=== PATIENT | male | born 1970 | race Two or more races ===

== ENCOUNTER 2020-10-04 17:01 | Outpatient (REF) | payer OTHER, SELFPAY ==
[2020-10-04 17:52] LABS: Hematocrit 46.8 % (42-52); Hemoglobin 16.2 g/dl (14.0-18.0); Mean Corpuscular HGB Conc 34.6 g/dl (31.0-36.0); Mean Corpuscular Hemoglobin 31.9 pg (27.0-33.0); Mean Corpuscular Volume 92.1 fL (80-98); Mean Platelet Volume 10.7 fL (9.4-12.4); Platelet Count 404 X10*3/uL (160-400); Red Blood Count 5.08 X10*6/uL (4.60-5.80); Red Cell Distribution Width 12.4 % (11.0-16.0); White Blood Count 12.6 X10*3/uL (4.8-10.8)
[2020-10-04 18:21] LABS: Alanine Aminotransferase 24 U/L (0-40); Albumin Level 4.9 g/dL (3.5-5.0); Alkaline Phosphatase 71 U/L (39-117); Anion Gap 14 (12-20); Aspartate Amino Transferase 24 U/L (5-37); Bilirubin Direct 0.3 mg/dL (0.0-0.5); Bilirubin Total 0.9 mg/dL (0.0-1.0); Blood Urea Nitrogen 21 mg/dL (9-16); Carbon Dioxide 29 mmol/L (22-29); Chloride 97 mmol/L (96-108); Cholesterol 200 mg/dL; Estimated Glomerular Filt Rate > 60; Glucose Random 100 mg/dL (60-115); HDL Cholesterol 50 mg/dL; LDL Cholesterol Calculated 115 mg/dl; Potassium 3.9 mmol/L (3.3-5.1); Sodium 136 mmol/L (135-145); Total Protein 7.9 g/dL (6.5-8.0); Triglycerides 179 mg/dL
[2020-10-04 18:45] LABS: Erythrocyte Sedimentation Rate 1 MM/HR (0-15)
== END 2020-10-04 17:02 | disposition home or self-care (01) ==
LOC: HO.LAB 17:01
PROVIDERS: PCP Internal Medicine; Visit Provider Internal Medicine
DX: I10 Essential (primary) hypertension (principal)
CPT/HCPCS: 36415; 80048; 80061; 80076; 85027; 85652

== ENCOUNTER 2022-03-15 08:59 | Outpatient (REF) | payer OTHER, SELFPAY ==
[2022-03-15 10:47] LABS: Hematocrit 47.8 % (42.0-52.0); Hemoglobin 16.2 g/dl (14.0-18.0); Mean Corpuscular HGB Conc 33.9 g/dl (31.0-36.0); Mean Corpuscular Volume 94.5 fL (80.0-98.0); Mean Platelet Volume 10.7 fL (9.4-12.4); Platelet Count 343 X10*3/uL (160-400); Red Blood Count 5.06 X10*6/uL (4.60-5.80); Red Cell Distribution Width 12.9 % (11.0-16.0); White Blood Count 7.7 X10*3/uL (4.8-10.8)
[2022-03-15 11:17] LABS: Appearance Urine CLEAR; Color Urine STRAW; Glucose Urine UA NEG (NEG); Leukocyte Esterase Urine NEG (NEG); Nitrite Urine NEG (NEG); Specific Gravity - Urine 1.015 (1.005-1.025); Urine Blood NEG (NEG); Urine Ketones NEG (NEG); Urine Protein NEG (NEG-TRACE)
[2022-03-15 11:23] LABS: Alanine Aminotransferase 54 U/L (0-40); Albumin Level 4.5 g/dL (3.5-5.0); Alkaline Phosphatase 65 U/L (39-117); Anion Gap 16 (12-20); Aspartate Amino Transferase 40 U/L (5-37); Bilirubin Direct 0.3 mg/dL (0.0-0.5); Bilirubin Total 0.9 mg/dL (0.0-1.0); Blood Urea Nitrogen 14 mg/dL (9-16); Calcium 9.7 mg/dL (8.4-10.2); Carbon Dioxide 25 mmol/L (22-29); Chloride 101 mmol/L (96-108); Cholesterol 210 mg/dL; Estimated Glomerular Filt Rate > 60; Glucose Random 92 mg/dL (60-115); HDL Cholesterol 47 mg/dL; LDL Cholesterol Calculated 131 mg/dl; Potassium 4.4 mmol/L (3.3-5.1); Sodium 138 mmol/L (135-145); Total Protein 7.6 g/dL (6.5-8.0); Triglycerides 162 mg/dL
[2022-03-15 11:32] LABS: Thyroid Stimulating Hormone 2.08 uIU/mL (0.32-4.0)
== END 2022-03-15 09:00 | disposition home or self-care (01) ==
LOC: HO.LAB 08:59
PROVIDERS: PCP Internal Medicine; Visit Provider Internal Medicine
DX: I10 Essential (primary) hypertension (principal)
CPT/HCPCS: 36415; 80048; 80061; 80076; 81003; 84443; 85027

== ENCOUNTER → 2022-11-06 10:09 | Outpatient (BNVA) | payer OTHER, SELFPAY | PROVIDERS: PCP Internal Medicine; Visit Provider Urology | DX: Z13.89 Encounter for screening for other disorder (principal) ==

== ENCOUNTER 2022-12-19 05:54 | Day surgery (SDC) | payer OTHER, SELFPAY ==
[2022-12-15 08:00] VITALS: BMI 31.7
--- NOTE | 2022-12-18 10:00 | HO.ANESPROP2 ---
Documented by User: Angela Pisano NP 12/18/22 10:00 HPI - Anesthesia Eval Consult details Narrative: 52yo M for Circumcision PMFSH Active Problems Active Problems: All Active Problems (Updated 11/06/22 @ 10:37 by Allen Arias) Phimosis (Acute) Balanitis (Acute) Foreskin does not retract (Acute) Obesity (BMI 30.0-34.9) (Acute) Rash (Acute) Essential (primary) hypertension (Acute) Past Medical History Medical History Essential (primary) hypertension Family History Family History Father No problems noted. Mother No problems noted. Daughter No problems noted. Daughter No problems noted. Surgical History Surgical History (Updated 12/19/22 @ 08:21 by Cayla Gould MD) H/O skin graft Social History Social History Housing: House Alcohol intake: never Patient Tobacco Use Status: Never used Tobacco e-Cigarette/Vaping Use: Never Used Second Hand Smoke Exposure: No Use of substances other than those prescribed or required for medical reasons: No Are you DNR?: No Advance Directives: No Advance Directives Information Provided: Yes Recently lost weight without trying: No Nutrition Risks: No Nutritional Risk service: No Current occupational status: employed Cognitive needs: No Hearing needs: No Vision needs: Yes (Glasses) Meds Allergies Allergy/AdvReac Type Severity Reaction Status Date / Time No Known Allergies Allergy Verified 11/06/22 10:16 [No Known Allergies*] Exam Exam Date and Time: December 18, 2022 1000 Height,Weight and Vital Signs: Height 5 ft 11 in Weight 102.965 kg Assessment and Plan Assessment Anesthesia Assessment: Chart Reviewed Documented by User: Cayla Gould MD 12/19/22 08:23 PMFSH Active Problems Active Problems: All Active Problems (Updated 12/19/22 @ 07:10 by Cayla Gould MD) Phimosis (Acute) Balanitis (Acute) Foreskin does not retract (Acute) Obesity (BMI 30.0-34.9) (Acute) Rash (Acute) Essential (primary) hypertension (Acute) Denies STAN Past Medical History Medical History Essential (primary) hypertension Family History Family History Father No problems noted. Mother No problems noted. Daughter No problems noted. Daughter No problems noted. Family history of problems with anesthesia: No Surgical History Surgical History (Updated 12/19/22 @ 08:21 by Cayla Gould MD) H/O skin graft History of Problems with Anesthesia: No Social History Social History Housing: House Alcohol intake: never Patient Tobacco Use Status: Never used Tobacco e-Cigarette/Vaping Use: Never Used Second Hand Smoke Exposure: No Use of substances other than those prescribed or required for medical reasons: No Are you DNR?: No Advance Directives: No Advance Directives Information Provided: Yes Recently lost weight without trying: No Nutrition Risks: No Nutritional Risk service: No Current occupational status: employed Cognitive needs: No Hearing needs: No Vision needs: Yes (Glasses) Meds Allergies Allergy/AdvReac Type Severity Reaction Status Date / Time No Known Allergies Allergy Verified 11/06/22 10:16 [No Known Allergies*] Exam Height,Weight and Vital Signs: Height 5 ft 11 in Weight 102.965 kg Vital Signs Temp Pulse Resp BP Pulse Ox O2 Del Method 12/19/22 06:15 97.1 F 62 16 128/72 96 Room Air Airway Mallampati Class: III TM Dist: >3cm Neck ROM: Full Loose/Missing/Broken Teeth: Yes (Missing 1 tooth bottom left) Heart: RRR Lungs: CTAB Assessment and Plan Assessment Anesthesia Assessment: Anesthesia Plan Discussed Final Anesthetic Review Family History of Problems with Anesthesia: No History of Problems with Anesthesia: No NPO: Yes ASA Class: II Final Preanesthetic Review: No Changes in Pt Med Stat, Meds/Allgs Chart Reviewed, Consent Obtained/Reviewed and Anes Risks/Benef Reviewed Patient Risk: Low Procedure Risk: Low Assessment/Block/Sedation in SS: Assess/Block/Sedation-SS Anesthetic Plan Anesthetic Plan: GA Disposition: Standard PACU
[2022-12-19] VITALS (8 sets, daily range): BP systolic 99–128; BP diastolic 61–72; PULSE 62–91; RESP 16–18; TEMP 36.1–36.4; O2SAT 90–98
[2022-12-19] MEDS: Lactated Ringers 1,000 ML 100 ML IVCONT (06:28)
--- NOTE | 2022-12-19 07:23 | MHC.SHP ---
Pre-Procedural Eval Section A Date of Service: 12/19/22 The patient is an INPATIENT: No The History & Physical has been completed within 30 days and I have reviewed it.: No Section B Chief Complaint: Balanitis Details of Present Illness: Gustavo is a 52-year-old male with PMH HTN, who presents for disorders of the prepuce. He complains of having tight foreskin and inability to complete foreskin retraction for 5 years. He has been prescribed creams in the past which have not helped. Denies prior STD's, c/o's of having pain with intercourse. Relevant Family History (Specify if Yes): No Medical History: No relevant PMH Allergies: Allergies Allergy/AdvReac Type Severity Reaction Status Date / Time No Known Allergies Allergy Verified 11/06/22 10:16 [No Known Allergies*] Review of Systems Review of Systems Comment: 10 point ROS negative other than stated in HPI Exam Surgical H&P Exam: Normal: HEENT, Normal: Heart and Normal: Lungs Plan Diagnosis/Plan: Unchanged I have reviewed the history and physical and performed a pertinent physical examination on my patient. No changes have occurred unless specified. Phimosis/Balanitis for Circumcision Time Spent With Patient Time: Total time managing care of this patient today ____ minutes.
--- NOTE | 2022-12-19 09:09 | W.PM.OPN ---
Operative Note Operative Note Date of Service: 12/19/22 Narrative: PreOperative Diagnosis:? ? Balanitis, phimosis Post Operative Diagnosis:?Balanitis, phimosis Procedure:?Circumcision Surgeon:?Dr Zainab Freire Anesthesia:? General Procedure: After informed consent was verified the patient was brought to the operating room and placed in a supine position.? Anesthesia was performed per protocol. The patient was prepped and draped in the usual sterile fashion. Safety pause time-out was performed. Antibiotics confirmed. Penile block was performed. The foreskin was not able to be retracted, a dorsal slit was made. The glans was exposed and betadine was used over the area. With the foreskin over the glans a circumferential incision was made at the level of the turner. The fore skin was then retracted and a circumferential incision was made 0.5 cm below the turner. The foreskin was removed with cautery. The skin was closed in 4 quadrants with 4-0 chromic, each quadrant closed with interrupted 4-0 chromic, bacitracin ointment was used over the incision and incision covered with cling. The patient tolerated the procedure well and was transferred to the recovery area upon completion in stable condition. Complications: None
== END 2022-12-19 10:50 | disposition home or self-care (01) ==
PROVIDERS: PCP Internal Medicine; Visit Provider Urology
PROC: (CPT 54161; principal; 2022-12-19 07:30)
DX: N48.1 Balanitis (principal); N47.1 Phimosis; I10 Essential (primary) hypertension
CPT/HCPCS: 54161; 88304; J0690; J1100; J2250; J2405; J2795; J3010

== ENCOUNTER → 2023-01-08 12:47 | Outpatient (BNVA) | payer OTHER, SELFPAY | PROVIDERS: PCP Internal Medicine; Visit Provider Urology ==

== ENCOUNTER 2023-03-01 14:30 | Outpatient (AMB) | payer OTHER, SELFPAY ==
--- NOTE | 2023-03-01 14:47 | A.OFFPC_ITS ---
Vital Signs 03/01/23 14:52 Height 5 ft 11 in Weight 226 lb 2 oz BMI 31.5 BP 120/70 Blood Pressure Location Lt brachial Position Sitting Pulse 89 Pulse Source Pulse Oximeter Pulse Oximetry (%) 95 Oxygen Delivery Method Room Air Intake Visit Reasons: 6 month follow up Intake Note: Patient is here to follow up on HTN. 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 Certified Caregiver: Not Required per policy Accompanied by: Self / Same As Patient Allergies No Known Allergies [No Known Allergies*] Allergy (Verified 03/01/23 15:28) Medication List - Last Reconciled 03/01/23 by Robert Mcmahon MD hydrochlorothiazide 25 mg PO DAILY lisinopril 10 mg PO DAILY sumatriptan succinate 50 mg PO Q2-4H PRN Tobacco use date assessed: 03/01/23 Dental Screening Dental Screen Date: 03/01/23 Did you have a dental visit in the last 12 months?: Yes Did you have a dental problem in the last 6 months where you did not have access to dental care?: No Was dental information given to patient?: Patient has dentist HPI 6 month follow up HPI Details 52-year-old male presents to the office to discuss his chronic medical conditions. Patient is reporting pain in his right foot great toe. He believes he has an ingrowing toenail. Compliant with all his medications. Not following any particular diet or exercise. Requesting a screening colonoscopy. [facility] Medical History Essential (primary) hypertension Surgical History H/O skin graft History of circumcision Family History Father No problems noted. Mother No problems noted. Daughter No problems noted. Daughter No problems noted. Social History Housing: House Alcohol intake: never Patient Tobacco Use Status: Never used Tobacco e-Cigarette/Vaping Use: Never Used Second Hand Smoke Exposure: No service: No Current occupational status: employed Cognitive needs: No Hearing needs: No Vision needs: Yes (Glasses) Questionnaire PHQ-9 Over the last 2 weeks, how often have you been bothered by any of the following problems? 1. Little interest or pleasure in doing things: not at all 2. Feeling down, depressed, or hopeless: not at all 3. Trouble falling or staying asleep, or sleeping too much: not at all 4. Feeling tired or having little energy: not at all 5. Poor appetite or overeating: not at all 6. Feeling bad about yourself - or that you are a failure or have let yourself or your family down: not at all 7. Trouble concentrating on things, such as reading the newspaper or watching television: not at all 8. Moving or speaking so slowly that other people could have noticed. Or the opposite - being so fidgety or restless that you have been moving around a lot more than usual: not at all 9. Thoughts that you would be better off or of hurting yourself in some way: not at all Total score: 0 Depression Screening Interpretation: Negative Source: Developed by Drs. Hector Booth, Ana Oconnor, Agus Narayanan and colleagues, with an educational quan from [employer]. Thrive Questionnaire Date Thrive assessed: 03/01/23 I am a: Patient What is your living situation today?: I have a steady place to live Within the past 12 months, did the food you bought not last and you didn't have the money to get more?: Never true Within the past 12 months, did you worry whether your food would run out before you got money to buy more?: Never true Do you have trouble paying for medicines?: No Do you have trouble getting transportation to medical appointments?: No Do you have trouble paying your heating and electricity bill?: No Do you have trouble taking care of your child, family member or friend?: No Do you have trouble with day-to-day activities such as bathing, preparing meals, shopping, managing finances, etc.?: No Are you currently unemployed and looking for a job?: No Are you interested in more education?: No Currently or been in a relationship where the following occur: no concerns reported AUDIT C Alcohol Use Questionnaire (AUDIT-C) 1. How often do you have a drink containing alcohol?: Never Total Score: 0 JOCELYN-7 AMB Questionnaire JOCELYN-7 Date JOCELYN - 7 assessed: 03/01/23 Feeling nervous, anxious, or on edge: 0 = Not at all Not being able to stop or control worryin = Not at all Worrying too much about different things: 0 = Not at all Trouble relaxin = Not at all Being so restless that it is hard to sit still: 0 = Not at all Becoming easily annoyed or irritable: 0 = Not at all Feeling afraid as if something awful might happen: 0 = Not at all Total JOCELYN-7 score (0-4 normal; 5-9 mild; 10-14 moderate; 15-21 severe): 0 Source: Developed by Drs. Hector Booth, Ana Oconnor, Agus Narayanan and colleagues, with an educational quan from [employer]. Physical exam (Primary Care) Vital Signs: Last Vital Signs Pulse 89 03/01/23 14:52 BP 120/70 03/01/23 14:52 Pulse Ox 95 03/01/23 14:52 Oxygen Delivery Method Room Air 03/01/23 14:52 Care Plan Goal for BP management: Blood pressure is in range. Continue current medications. BMI result Body Mass Index 31.5 Tobacco/Smoking Status: Tobacco use Status Tobacco use date assessed 03/01/23 03/01/23 14:57 Patient Tobacco Use Status Never used Tobacco 03/01/23 14:57 e-Cigarette/Vaping Use Never Used 03/01/23 14:57 PHQ-9: PHQ-9 Score PHQ-9: Total score 0 03/01/23 14:57 Depression Screening Interpretation: Negative Thrive Assessment: Date of Thrive Assessment Date Thrive assessed 03/01/23 03/01/23 14:57 Currently or been in a relationship where the following occur: no concerns reported Const General: cooperative, healthy appearing and comfortable HENMT Head: Yes normal to inspection and Yes atraumatic Eyes General: appearance normal, both eyes and all related structures Neck Neck: Yes normal visual inspection and Yes full ROM Chest Chest palpation & inspection: normal inspection of the chest Resp Effort & Inspection: normal respiratory effort Auscultation: clear to auscultation bilaterally Cardio Jugular venous distension: no JVD Palpation: normal PMI Rate: regular rate Heart sounds: S1 normal heart sound present and S2 normal heart sound present GI Palpation (GI): Soft to palpation and No hepatosplenomegaly present Extrem General: Yes normal to inspection and Yes full ROM Assessment and Plan Assessment & Plan (1) Paronychia of great toe, right: Code(s): L03.031 - Cellulitis of right toe Plan: Antibiotics called in. Podiatry consult made. (2) Essential (primary) hypertension: Code(s): I10 - Essential (primary) hypertension Plan: Blood work is in range. Continue medications at same dosage. Coding Level of Care Code Est Pt Level 4 (85159) Diagnoses Paronychia of great toe, right L03.031 Essential (primary) hypertension I10
[2023-03-01 14:52] VITALS: BP 120/70; PULSE 89; O2SAT 95; BMI 31.5
== END 2023-03-01 15:22 | disposition home or self-care (01) ==
PROVIDERS: PCP Internal Medicine; Visit Provider Internal Medicine
DX: L03.031 Cellulitis of right toe (principal); I10 Essential (primary) hypertension
CPT/HCPCS: 99214

== ENCOUNTER 2023-03-03 07:09 | Outpatient (REF) | payer OTHER, SELFPAY ==
[2023-03-03 07:49] LABS: Hematocrit 49.2 % (42.0-52.0); Hemoglobin 16.6 g/dl (14.0-18.0); Mean Corpuscular HGB Conc 33.7 g/dl (31.0-36.0); Mean Corpuscular Hemoglobin 32.4 pg (27.0-33.0); Mean Corpuscular Volume 96.1 fL (80.0-98.0); Mean Platelet Volume 10.5 fL (9.4-12.4); Platelet Count 328 X10*3/uL (160-400); Red Blood Count 5.12 X10*6/uL (4.60-5.80); Red Cell Distribution Width 12.9 % (11.0-16.0); White Blood Count 9.2 X10*3/uL (4.8-10.8)
[2023-03-03 08:22] LABS: Alanine Aminotransferase 61 U/L (0-40); Albumin Level 4.3 g/dL (3.5-5.0); Alkaline Phosphatase 71 U/L (39-117); Anion Gap 15 (12-20); Aspartate Amino Transferase 55 U/L (5-37); Bilirubin Direct 0.4 mg/dL (0.0-0.5); Bilirubin Total 1.2 mg/dL (0.0-1.0); Blood Urea Nitrogen 14 mg/dL (9-16); Calcium 9.7 mg/dL (8.4-10.2); Carbon Dioxide 25 mmol/L (22-29); Chloride 101 mmol/L (96-108); Cholesterol 193 mg/dL; Estimated Glomerular Filt Rate > 60; Glucose Random 102 mg/dL (60-115); HDL Cholesterol 46 mg/dL; LDL Cholesterol Calculated 118 mg/dl; Potassium 3.7 mmol/L (3.3-5.1); Sodium 137 mmol/L (135-145); Total Protein 7.5 g/dL (6.5-8.0); Triglycerides 146 mg/dL
[2023-03-03 08:39] LABS: Thyroid Stimulating Hormone 1.02 uIU/mL (0.32-4.0)
[2023-03-03 08:47] LABS: Appearance Urine Clear; Color Urine Yellow; Glucose Urine UA Negative (Negative); Leukocyte Esterase Urine Negative (Negative); Nitrite Urine Negative (Negative); PH 5.5 (5.0-9.0); Specific Gravity - Urine 1.025 (1.005-1.025); Urine Blood Negative (Negative); Urine Ketones Negative (Negative); Urine Protein Negative (Neg-Trace)
== END 2023-03-03 07:10 | disposition home or self-care (01) ==
LOC: HO.LAB 07:09
PROVIDERS: PCP Internal Medicine; Visit Provider Internal Medicine
DX: I10 Essential (primary) hypertension (principal)
CPT/HCPCS: 36415; 80048; 80061; 80076; 81003; 84443; 85027

== ENCOUNTER 2023-03-10 06:53 | Outpatient (REF) | payer OTHER, SELFPAY ==
[2023-03-12 04:31] LABS: HBsAGNum1 0.33 S/CO (0.00-0.99); Hepatitis B Surface Antigen Negative (Negative)
[2023-03-12 04:50] LABS: HBS Num1 102.32 mIU/mL (0-7.99); Hepatitis A Antibody IgM 0.16 Index (0-0.79); Hepatitis B Core Antibody Nonreactive (Nonreactive); ~HepC Num1 0.18 S/CO (0.00-0.79); ~Hepatitis A Antibody IgM Nonreactive (Nonreactive); ~Hepatitis B Surface Antibody REACTIVE (Nonreactive); ~Hepatitis C Antibody Nonreactive (Nonreactive)
== END 2023-03-10 06:54 | disposition home or self-care (01) ==
LOC: HO.LAB 06:53
PROVIDERS: PCP Internal Medicine; Visit Provider Internal Medicine
DX: K75.9 Inflammatory liver disease, unspecified (principal)
CPT/HCPCS: 36415; 86704; 86706; 86709; 86803; 87340

== ENCOUNTER 2023-05-02 12:55 | Outpatient (AMB) | payer OTHER, SELFPAY ==
[2023-05-02 13:04] VITALS: BP 148/89; PULSE 69; BMI 31.5
--- NOTE | 2023-05-02 13:04 | MHC.OFFVIS ---
Intake Vital Signs 05/02/23 13:04 Height 5 ft 11 in Weight 226 lb 3.108 oz BMI 31.5 BP 148/89 H Blood Pressure Location Lt brachial Position Sitting Pulse 69 Intake Visit Reasons: Colonoscopy Screening Intake Note: Patient presents to in office visit today as a new patient for colonoscopy screening. CC: Patient denies having any GI symptoms or concerns today. Allergies No Known Allergies [No Known Allergies*] Allergy (Verified 05/02/23 13:07) Medication List - Last Reconciled 05/02/23 by Izzy Clarke PA-C hydrochlorothiazide 25 mg PO DAILY lisinopril 10 mg PO DAILY sumatriptan succinate 50 mg PO Q2-4H PRN HPI HPI Comments History of Present Illness Details A 53 y/o male referred for index screening colonoscopy-He has no GI complaints. No family history GI cancer Normal Bowels - good appetite- no smoke, occ. etoh. No Cardiac or respiratory issues no nausea, vomiting, hematemesis, hematochezia,abdominal pain, fever or chills PFSH Medical History Essential (primary) hypertension Surgical History History of circumcision H/O skin graft Family History Father No problems noted. Mother No problems noted. Daughter No problems noted. Daughter No problems noted. Social History Housing: House Alcohol intake: current Alcohol intake frequency: holidays/special occasions only Patient Tobacco Use Status: Never used Tobacco e-Cigarette/Vaping Use: Never Used Second Hand Smoke Exposure: No service: No Current occupational status: employed Cognitive needs: No Hearing needs: No Vision needs: Yes (Glasses) Review of Systems Const All systems reviewed & are unremarkable except as noted in HPI and below Card Denies chest pain and Denies dyspnea Resp Denies dyspnea GI Denies abdominal pain, Denies hematochezia, Denies change in bowel habits, Denies nausea and Denies vomiting Physical Exam Vital Signs: Last Vital Signs Pulse 69 05/02/23 13:04 BP 148/89 H 05/02/23 13:04 BMI result Body Mass Index 31.5 Const General: cooperative, healthy appearing, comfortable and no acute distress Eyes Sclerae: sclerae normal Resp Effort & Inspection: normal respiratory effort and able to speak in complete sentences Auscultation: clear to auscultation bilaterally, no rales, no rhonchi and no wheezes Cardio Rate: regular rate Rhythm: regular rhythm Heart sounds: S1 normal heart sound present and S2 normal heart sound present GI Palpation (GI): Soft to palpation and nontender Auscultation: normal bowel sounds Skin General skin exam: no rashes or lesions noted Extrem General: Yes full ROM Psych Appearance: grossly normal and well kempt Speech and movement: Normal speech and movement present and Clear speech present Affect: normal affect Attitude: cooperative Thought process: Normal thought process present Thought content: Normal thought content present Insight: Good insight present (Psych) Judgement: Good judgement present (Psych) Assessment & Plan Assessment & Plan (1) Screening for colon cancer: Comment: Discussed procedure, rare risks, need for escorted due to anesthesia Code(s): Z12.11 - Encounter for screening for malignant neoplasm of colon Plan: Index screening colonoscopy MiraLax Gatorade blood Plan index screening MG split prep Orders: Orders Colonoscopy - GI Use Only Today Z12.11 - Encounter for screening for malignant neoplasm of colon Medications: New bisacodyl (Dulcolax (bisacodyl)) Take 4 tablets by mouth at 12:00pm the day before your procedure. 20 mg (4 x 5 mg) PO ONCE 4 tabs 0RF colonoscopy prep 1 day Z12.11 - Encounter for screening for malignant neoplasm of colon polyethylene glycol 3350 (Miralax) Take as directed by mouth the day before your procedure. 238 grams PO ONCE PRN 238 grams 0RF laxative effect 1 day Patient Instructions: Pleasant 53-year-old Gent no GI complaints referred for index screening colonoscopy MG split prep-literature given Opportunity for questions Encouraged to call with any concerns Coding Level of Care Code New Pt Level 3 (14155) Diagnoses Screening for colon cancer Z12.11 Time Spent (min) 30
== END 2023-05-02 14:54 | disposition home or self-care (01) ==
PROVIDERS: PCP Internal Medicine; Visit Provider Physician Assistant
DX: Z12.11 Encounter for screening for malignant neoplasm of colon (principal); Z01.818 Encounter for other preprocedural examination
CPT/HCPCS: 99203

== ENCOUNTER → 2023-05-02 12:55 | Outpatient (BNVA) | payer OTHER, SELFPAY | PROVIDERS: PCP Internal Medicine; Visit Provider Physician Assistant ==

== ENCOUNTER 2023-09-17 06:27 | Day surgery (SDC) | payer OTHER, SELFPAY ==
[2023-09-13 07:16] VITALS: BMI 31.5
--- NOTE | 2023-09-14 09:03 | HO.ANESPROP2 ---
Documented by User: Angela Pisano NP 09/14/23 09:03 HPI - Anesthesia Eval Consult details Narrative: 53yo M for Colonoscopy PMFSH Active Problems Active Problems: All Active Problems (Updated 05/02/23 @ 14:10 by Izzy Clarke PA-C) Hepatitis (Acute) Screening for colon cancer (Acute) Paronychia of great toe, right (Acute) History of balanitis (Acute) History of phimosis of penis (Acute) Phimosis (Acute) Balanitis (Acute) Foreskin does not retract (Acute) Obesity (BMI 30.0-34.9) (Acute) Rash (Acute) Essential (primary) hypertension (Acute) Past Medical History Medical History Essential (primary) hypertension Family History Family History Father No problems noted. Mother No problems noted. Daughter No problems noted. Daughter No problems noted. Family history of problems with anesthesia: No Surgical History Surgical History History of circumcision H/O skin graft History of Problems with Anesthesia: No Social History Social History Housing: House Alcohol intake: current Alcohol intake frequency: holidays/special occasions only Patient Tobacco Use Status: Never used Tobacco e-Cigarette/Vaping Use: Never Used Second Hand Smoke Exposure: No Use of substances other than those prescribed or required for medical reasons: No Are you DNR?: No Advance Directives: No Advance Directives Information Provided: Yes service: No Current occupational status: employed Cognitive needs: No Hearing needs: No Vision needs: Yes (Glasses) Meds Allergies Allergy/AdvReac Type Severity Reaction Status Date / Time No Known Allergies Allergy Verified 05/02/23 13:07 [No Known Allergies*] Exam Height,Weight and Vital Signs: Height 5 ft 11 in Weight 102.512 kg Assessment and Plan Assessment Anesthesia Assessment: Chart Reviewed Final Anesthetic Review Family History of Problems with Anesthesia: No History of Problems with Anesthesia: No Documented by User: Ashlee Cardenas MD 09/17/23 08:16 PMFSH Past Medical History Medical History Essential (primary) hypertension Family History Family History Father No problems noted. Mother No problems noted. Daughter No problems noted. Daughter No problems noted. Surgical History Surgical History History of circumcision H/O skin graft Social History Social History Housing: House Alcohol intake: current Alcohol intake frequency: holidays/special occasions only Patient Tobacco Use Status: Never used Tobacco e-Cigarette/Vaping Use: Never Used Second Hand Smoke Exposure: No Use of substances other than those prescribed or required for medical reasons: No Are you DNR?: No Advance Directives: No Advance Directives Information Provided: Yes service: No Current occupational status: employed Cognitive needs: No Hearing needs: No Vision needs: Yes (Glasses) Meds Allergies Allergy/AdvReac Type Severity Reaction Status Date / Time No Known Allergies Allergy Verified 05/02/23 13:07 [No Known Allergies*] Exam Airway Mallampati Class: II TM Dist: >3cm Neck ROM: Full Heart: rrr Lungs: cta Assessment and Plan Assessment Anesthesia Assessment: Anesthesia Plan Discussed Final Anesthetic Review NPO: Yes ASA Class: II Final Preanesthetic Review: No Changes in Pt Med Stat, Meds/Allgs Chart Reviewed and Consent Obtained/Reviewed Patient Risk: Low Procedure Risk: Low Anesthetic Plan Anesthetic Plan: MAC: Disposition: Standard PACU
[2023-09-17 07:07] VITALS: BMI 30.9
[2023-09-17 07:23] VITALS: BP 149/90; PULSE 49; PULSE 57; RESP 16; TEMP 36.5; O2SAT 97
[2023-09-17] MEDS: Lactated Ringers 1,000 ML 100 ML IVCONT (07:28)
--- NOTE | 2023-09-17 08:01 | MHC.SHP ---
Pre-Procedural Eval Section A - 24 Hr Update-Section A only Date of Service: 09/17/23 The patient is an INPATIENT: No The patient has been examined within 24 hours of the surgical procedure. The History & Physical has been completed within 30 days and I have reviewed it.: No Section B - Complete if H&P > 30 days Chief Complaint: Colon cancer screening Relevant Family History (Specify if Yes): No Relevant Social History: None Present Medications: see Short Stay Collaborative assessment Medical History: Significant History (Hypertension) History of Previous Operations: Relevant previous surgery/procedure and date(s) (History of circumcision H/O skin graft) Allergies: Allergies Allergy/AdvReac Type Severity Reaction Status Date / Time No Known Allergies Allergy Verified 05/02/23 13:07 [No Known Allergies*] Review of Systems Sugical H&P ROS: Negative: Constitution, Cardiovascular, Respiratory and Gastrointestinal Exam Surgical H&P Exam: Normal: Heart, Normal: Lungs, Normal: Extremities and Normal: Abdomen Plan Diagnosis/Plan: Unchanged I have reviewed the history and physical and performed a pertinent physical examination on my patient. No changes have occurred unless specified. Time Spent With Patient Time: Total time managing care of this patient today ____ minutes.
--- NOTE | 2023-09-17 08:25 | P.OP_ITS ---
Operative Note Operative Note Date of Service: 09/17/23 Narrative: COLONOSCOPY TILL CECUM WITH BIOPSIES Pre-op diagnosis: Colon cancer screening - 1st colonoscopy Post-op diagnosis:? Colon polyp, diverticulosis, hemorrhoids Endoscopist:? Avel Kramer MD Anesthesia:?MAC Consent: Indications for the procedure and potential complications of bleeding, perforation, reaction to medications and missed diagnosis were discussed with the patient and informed consent was obtained. Instrument: Olympus CF H 190 L variable stiffness adult colonoscope Monitoring: Vital signs and clinical assessment, intermittent blood pressure monitoring, continuous EKG monitoring, Pulse oximetry and Carbon Dioxide monitoring were done throughout the procedure. Please see anesthesia flowsheet. Colon withdrawl time was 16 minutes. Procedure: The patient was placed in the left lateral decubitis position and pre-procedure medications were administered. After a digital rectal examination of the ano-rectum, the video colonoscope was inserted into the rectum and advanced through the colon to the cecum. The colonoscope was slowly withdrawn in a retrograde panoramic fashion and the colon mucosa was carefully examined including a retroflexed view of the rectum. Findings and interventions are described below. Procedure Difficulty: Without difficulty Findings: Terminal Ileum: Not evaluated Cecum: Normal Ascending Colon: Normal Transverse Colon: Normal Descending Colon: Normal Sigmoid Colon: Moderate diverticulosis Rectum: A 5-6 mm diminutive appearing polyp in proximal rectum- removed with a cold biopsy Ano-rectum: Moderate internal hemorrhoids Colon preparation: Excellent [place] Bowel Preparation Scale Right colon; 3 Transverse colon: 3 Left colon; 3 (0 = Unprepared colon segment with mucosa not seen due to solid stool that cannot be cleared. 1 = Portion of mucosa of the colon segment seen, but other areas of the colon segment not well seen due to staining, residual stool and/or opaque liquid. 2 = Minor amount of residual staining, small fragments of stool and/or opaque liquid, but mucosa of colon segment seen well. 3 = Entire mucosa of colon segment seen well with no residual staining, small fragments of stool or opaque liquid) Impression and Post Procedure Diagnosis: Colonoscopy Findings: One small polyp removed Moderate diverticulosis seen in the sigmoid colon Moderate hemorrhoids on retroflexed exam. Plan: Await pathology results Patient has an appointment on 10/01/23 in the [facility] with PATRICIO Solares. Repeat Colonoscopy interval based on path results - in 5 years if polyps are adenomatous and 10 years if polyps are hyperplastic. Above findings were reviewed with the patient and colon polyps and diverticulosis handouts were given in the discharge area
[2023-09-17 09:03] VITALS: BP 130/88; PULSE 83; RESP 16; TEMP 36.4; O2SAT 97
[2023-09-17 09:18] VITALS: BP 143/84; PULSE 66; RESP 18; TEMP 36.7; O2SAT 98
== END 2023-09-17 09:45 | disposition home or self-care (01) ==
PROVIDERS: PCP Internal Medicine; Visit Provider Internal Medicine Gastroenterology
PROC: 0DJD8ZZ Inspection of Lower Intestinal Tract, Via Natural or Artificial Opening Endoscopic (ICD-10-PCS; CPT 45378; principal; 2023-09-17 08:30)
DX: Z12.11 Encounter for screening for malignant neoplasm of colon (principal); K62.1 Rectal polyp; K57.30 Diverticulosis of large intestine without perforation or abscess without bleeding; K64.8 Other hemorrhoids; I10 Essential (primary) hypertension; Z79.899 Other long term (current) drug therapy; Z98.890 Other specified postprocedural states
CPT/HCPCS: 45380; 88305; J2704

== ENCOUNTER → 2023-09-17 06:27 | Outpatient (BNV) | payer OTHER, SELFPAY | PROVIDERS: PCP Internal Medicine; Visit Provider Internal Medicine Gastroenterology | DX: Z12.11 Encounter for screening for malignant neoplasm of colon (principal); K62.1 Rectal polyp; K57.30 Diverticulosis of large intestine without perforation or abscess without bleeding; K64.8 Other hemorrhoids | CPT/HCPCS: 45380 ==

== ENCOUNTER 2023-10-01 07:51 | Outpatient (AMB) | payer OTHER, SELFPAY ==
--- NOTE | 2023-10-01 08:13 | MHC.OFFVIS ---
Intake Vital Signs 10/01/23 08:23 Height 5 ft 11 in Weight 220 lb 7.396 oz BMI 30.7 BP 145/82 H Blood Pressure Location Lt brachial Position Sitting Pulse 55 Intake Visit Reasons: S/p colon Intake Note: Gustavo presents in the office as a follow up colonoscopy. CC: He states that he is not having any concerns today! Allergies No Known Allergies [No Known Allergies*] Allergy (Verified 10/01/23 08:23) HPI HPI Comments History of Present Illness Details A 53 y/.o male follows up after index screening colonoscopy- with polypectomy-he tolerated well with no complaints He does admit to intermittent constipation, and straining occasionally will have small amount of bright red blood on TP when straining Reviewed procedure report, pathology and recommendation Hyperplastic polyps Moderate diverticulosis Moderate hemorrhoids He has no abdominal pain, nausea, vomiting, hematemesis fever or chills PFSH Medical History Essential (primary) hypertension Surgical History Hx of colonoscopy History of circumcision H/O skin graft Family History Father No problems noted. Mother No problems noted. Daughter No problems noted. Daughter No problems noted. Social History Housing: House Alcohol intake: current Alcohol intake frequency: holidays/special occasions only Patient Tobacco Use Status: Never used Tobacco e-Cigarette/Vaping Use: Never Used Second Hand Smoke Exposure: No service: No Current occupational status: employed Cognitive needs: No Hearing needs: No Vision needs: Yes (Glasses) Review of Systems Const All systems reviewed & are unremarkable except as noted in HPI and below Card Denies chest pain and Denies dyspnea Resp Denies dyspnea GI Denies abdominal pain, Denies hematochezia, Denies nausea and Denies vomiting Physical Exam Vital Signs: Last Vital Signs Pulse 55 10/01/23 08:23 BP 145/82 H 10/01/23 08:23 BMI result Body Mass Index 30.7 Const General: cooperative, healthy appearing, comfortable and no acute distress Orientation/consciousness: patient oriented x3 Limitations: no limitations Eyes Sclerae: sclerae normal Resp Effort & Inspection: normal respiratory effort and able to speak in complete sentences Skin General skin exam: no rashes or lesions noted Neuro General: patient oriented x3 Extrem General: Yes full ROM Psych Appearance: grossly normal and well kempt Mental Status: mental status grossly normal Speech and movement: Normal speech and movement present and Clear speech present Affect: normal affect Attitude: cooperative Thought process: Normal thought process present Thought content: Normal thought content present Insight: Good insight present (Psych) Judgement: Good judgement present (Psych) Results Reviewed Results Reviewed: Impression and Post Procedure Diagnosis: Colonoscopy Findings: One small polyp removed Moderate diverticulosis seen in the sigmoid colon Moderate hemorrhoids on retroflexed exam. Plan: Await pathology results Patient has an appointment on 10/01/23 in the GI Clinic with PATRICIO Solares. Repeat Colonoscopy interval based on path results - in 5 years if polyps are adenomatous and 10 years if polyps are hyperplastic. Above findings were reviewed with the patient and colon polyps and diverticulosis handouts were given in the discharge area Hyperplastic polyp repeat colonoscopy 10 years Assessment & Plan Assessment & Plan (1) Hyperplastic colon polyp: Comment: Reviewed pathology hyperplastic polyp Code(s): K63.5 - Polyp of colon Plan: 10 year colon (2) Diverticulosis: Code(s): K57.90 - Diverticulosis of intestine, part unspecified, without perforation or abscess without bleeding Plan: Maintain high-fiber diet Review ER protocol (3) Hemorrhoids: Code(s): K64.9 - Unspecified hemorrhoids Plan: HFD Avoid straining Rectal cream Plan 10 year asymptomatic colonoscopy Medications: New hydrocortisone 2.5% (Proctosol HC) 1 appl OR BEDTIME PRN 30 grams 3RF hemorrhoids docusate sodium (Colace) 200 mg (2 x 100 mg) PO BEDTIME 60 caps 5RF Patient Instructions: Repeat asymptomatic colonoscopy 10 years sooner if indicated Reviewed procedure report, pathology and recommendation Diverticulosis/diverticulitis ER protocol review Maintain high-fiber diet-literature given Foods to avoid-not/seeds/corn ETC Stool softeners avoid straining May use rectal cream as needed If hemorrhoids become bothersome will refer for surgical consult He agrees with the plan Encouraged to call questions or concerns Coding Level of Care Code Est Pt Level 3 (70232) Diagnoses Hyperplastic colon polyp K63.5 Diverticulosis K57.90 Hemorrhoids K64.9 Time Spent (min) 20
[2023-10-01 08:23] VITALS: BP 145/82; PULSE 55; BMI 30.7
== END 2023-10-01 09:35 | disposition home or self-care (01) ==
PROVIDERS: PCP Internal Medicine; Visit Provider Physician Assistant
DX: K63.5 Polyp of colon (principal); K57.90 Diverticulosis of intestine, part unspecified, without perforation or abscess without bleeding; K64.9 Unspecified hemorrhoids
CPT/HCPCS: 99213

== ENCOUNTER → 2023-10-01 07:51 | Outpatient (BNVA) | payer OTHER, SELFPAY | PROVIDERS: PCP Internal Medicine; Visit Provider Physician Assistant ==

== ENCOUNTER 2023-12-20 13:22 | Outpatient (AMB) | payer OTHER, SELFPAY ==
--- NOTE | 2023-12-20 13:40 | MHC.PC.OV ---
Vital Signs 12/20/23 13:43 Height 5 ft 11 in Weight 220 lb 8 oz BMI 30.8 BP 120/70 Blood Pressure Location Lt brachial Position Sitting Pulse 82 Pulse Source Pulse Oximeter Pulse Oximetry (%) 97 Oxygen Delivery Method Room Air Intake Visit Reasons: 6mon f/u Intake Note: Patient is here to follow up on HTN. Hotel Yardperson Required: No Scheduler Conveyor: Not Required per policy Accompanied by: Self / Same As Patient Allergies No Known Allergies [No Known Allergies*] Allergy (Verified 12/20/23 13:42) Tobacco use date assessed: 12/20/23 Dental Screening Dental Screen Date: 12/20/23 Did you have a dental visit in the last 12 months?: No Did you have a dental problem in the last 6 months where you did not have access to dental care?: No Was dental information given to patient?: No HPI 6mon f/u HPI Details 53-year-old male presents to the office to discuss his chronic medical conditions. Patient is compliant with medications and reporting no side effects. Earlier this year he had a screening colonoscopy. Able to function and do all activities of daily living. [facility] Medical History Essential (primary) hypertension Surgical History Hx of colonoscopy History of circumcision H/O skin graft Family History Father No problems noted. Mother No problems noted. Daughter No problems noted. Daughter No problems noted. Social History Housing: House Alcohol intake: current Alcohol intake frequency: holidays/special occasions only Patient Tobacco Use Status: Never used Tobacco e-Cigarette/Vaping Use: Never Used Second Hand Smoke Exposure: No service: No Current occupational status: employed Cognitive needs: No Hearing needs: No Vision needs: Yes (Glasses) Questionnaire PHQ-9 Over the last 2 weeks, how often have you been bothered by any of the following problems? 1. Little interest or pleasure in doing things: not at all 2. Feeling down, depressed, or hopeless: not at all 3. Trouble falling or staying asleep, or sleeping too much: not at all 4. Feeling tired or having little energy: not at all 5. Poor appetite or overeating: not at all 6. Feeling bad about yourself - or that you are a failure or have let yourself or your family down: not at all 7. Trouble concentrating on things, such as reading the newspaper or watching television: not at all 8. Moving or speaking so slowly that other people could have noticed. Or the opposite - being so fidgety or restless that you have been moving around a lot more than usual: not at all 9. Thoughts that you would be better off or of hurting yourself in some way: not at all Total score: 0 Depression Screening Interpretation: Negative Depression Screening Done: Yes Source: Developed by Drs. Hector Booth, Ana Oconnor, Agus Narayanan and colleagues, with an educational quan from [employer]. Thrive Questionnaire Date Thrive assessed: 12/20/23 I am a: Patient What is your living situation today?: I have a steady place to live Within the past 12 months, did the food you bought not last and you didn't have the money to get more?: Never true Within the past 12 months, did you worry whether your food would run out before you got money to buy more?: Never true Do you have trouble paying for medicines?: No Do you have trouble getting transportation to medical appointments?: No Do you have trouble paying your heating and electricity bill?: No Do you have trouble taking care of your child, family member or friend?: No Do you have trouble with day-to-day activities such as bathing, preparing meals, shopping, managing finances, etc.?: No Are you currently unemployed and looking for a job?: No Are you interested in more education?: No Currently or been in a relationship where the following occur: no concerns reported THRIVE Score: 0 AUDIT C Alcohol Use Questionnaire (AUDIT-C) 1. How often do you have a drink containing alcohol?: Never Total Score: 0 JOCELYN-7 AMB Questionnaire JOCELYN-7 Date JOCELYN - 7 assessed: 12/20/23 Feeling nervous, anxious, or on edge: 0 = Not at all Not being able to stop or control worryin = Not at all Worrying too much about different things: 0 = Not at all Trouble relaxin = Not at all Being so restless that it is hard to sit still: 0 = Not at all Becoming easily annoyed or irritable: 0 = Not at all Feeling afraid as if something awful might happen: 0 = Not at all Total JOCELYN-7 score (0-4 normal; 5-9 mild; 10-14 moderate; 15-21 severe): 0 Source: Developed by Drs. Hector Booth, Ana Oconnor, Agus Narayanan and colleagues, with an educational quan from [employer]. Physical exam (Primary Care) Vital Signs: Last Vital Signs Pulse 82 12/20/23 13:43 BP 120/70 12/20/23 13:43 Pulse Ox 97 12/20/23 13:43 Oxygen Delivery Method Room Air 12/20/23 13:43 Care Plan Goal for BP management: Blood pressure is in range. Continue current medications. BMI result Body Mass Index 30.8 Tobacco/Smoking Status: Tobacco use Status Tobacco use date assessed 12/20/23 12/20/23 13:49 Patient Tobacco Use Status Never used Tobacco 12/20/23 13:49 e-Cigarette/Vaping Use Never Used 12/20/23 13:49 PHQ-9: PHQ-9 Score PHQ-9: Total score 0 12/20/23 13:49 Depression Screening Interpretation: Negative Thrive Assessment: Date of Thrive Assessment Date Thrive assessed 12/20/23 12/20/23 13:49 Currently or been in a relationship where the following occur: no concerns reported Const General: cooperative and healthy appearing Nutritional Appearance: well nourished Orientation/consciousness: patient oriented x3 Limitations: no limitations HENMT Head: Yes normal to inspection Eyes General: appearance normal, both eyes and all related structures Neck Neck: Yes normal visual inspection Chest Chest palpation & inspection: normal palpation of entire chest wall Resp Effort & Inspection: normal respiratory effort Neuro General: patient oriented x3 Assessment and Plan Assessment & Plan (1) Essential (primary) hypertension: Code(s): I10 - Essential (primary) hypertension Plan: Blood work has been ordered. Continue medications at same dosage. Coding Level of Care Code Est Pt Level 4 (78060) Diagnoses Essential (primary) hypertension I10
[2023-12-20 13:43] VITALS: BP 120/70; PULSE 82; O2SAT 97; BMI 30.8
== END 2023-12-20 14:41 | disposition home or self-care (01) ==
PROVIDERS: PCP Internal Medicine; Visit Provider Internal Medicine
DX: I10 Essential (primary) hypertension (principal)
CPT/HCPCS: 99214

== ENCOUNTER 2023-12-22 07:29 | Outpatient (REF) | payer OTHER, SELFPAY ==
[2023-12-22 07:54] LABS: Hemoglobin 16.6 g/dl (14.0-18.0); Mean Corpuscular HGB Conc 35.3 g/dl (31.0-36.0); Mean Corpuscular Hemoglobin 33.1 pg (27.0-33.0); Mean Corpuscular Volume 93.6 fL (80.0-98.0); Mean Platelet Volume 10.3 fL (9.4-12.4); Platelet Count 337 X10*3/uL (160-400); Red Blood Count 5.02 X10*6/uL (4.60-5.80); Red Cell Distribution Width 13.2 % (11.0-16.0); White Blood Count 8.4 X10*3/uL (4.8-10.8)
[2023-12-22 08:52] LABS: Alanine Aminotransferase 43 U/L (0-40); Albumin Level 4.3 g/dL (3.5-5.0); Alkaline Phosphatase 65 U/L (39-117); Anion Gap 15 (12-20); Aspartate Amino Transferase 33 U/L (5-37); Bilirubin Direct 0.3 mg/dL (0.0-0.5); Bilirubin Total 1.2 mg/dL (0.0-1.0); Blood Urea Nitrogen 16 mg/dL (9-16); Calcium 9.2 mg/dL (8.4-10.2); Carbon Dioxide 24 mmol/L (22-29); Chloride 102 mmol/L (96-108); Cholesterol 185 mg/dL (<200); Estimated Glomerular Filt Rate > 60; Glucose Random 101 mg/dL (60-115); HDL Cholesterol 49 mg/dL (>40); LDL Cholesterol Calculated 119 mg/dL (<100); Sodium 137 mmol/L (135-145); Total Protein 7.6 g/dL (6.5-8.0); Triglycerides 87 mg/dL (<150)
[2023-12-22 09:11] LABS: Thyroid Stimulating Hormone 0.95 uIU/mL (0.32-4.0)
[2023-12-22 09:40] LABS: Appearance Urine Clear; Color Urine Yellow; Glucose Urine UA Negative (Negative); Leukocyte Esterase Urine Negative (Negative); Nitrite Urine Negative (Negative); PH 5.5 (5.0-9.0); Specific Gravity - Urine 1.025 (1.005-1.025); Urine Blood Negative (Negative); Urine Ketones Negative (Negative); Urine Protein Negative (Neg-Trace)
== END 2023-12-22 07:30 | disposition home or self-care (01) ==
LOC: HO.LAB 07:29
PROVIDERS: PCP Internal Medicine; Visit Provider Internal Medicine
DX: I10 Essential (primary) hypertension (principal)
CPT/HCPCS: 36415; 80048; 80061; 80076; 81003; 84443; 85027

== ENCOUNTER 2024-06-30 14:53 | Outpatient (AMB) | payer OTHER, SELFPAY ==
--- NOTE | 2024-06-30 14:55 | A.OFFPC_ITS ---
Vital Signs 06/30/24 14:56 Height 5 ft 11 in Weight 239 lb 8 oz BMI 33.4 BP 110/62 Blood Pressure Location Lt brachial Position Sitting Pulse 90 Pulse Source Pulse Oximeter Pulse Oximetry (%) 98 Oxygen Delivery Method Room Air Intake Visit Reasons: 6 month f/u Intake Note: Patient is here to follow up on HTN. Pt decline flu shot today. Erosion Control Coordinator Required: No Diesel Dinkey Engineer: Not Required per policy Accompanied by: Self / Same As Patient Allergies No Known Allergies [No Known Allergies*] Allergy (Verified 06/30/24 14:56) Tobacco use date assessed: 06/30/24 Dental Screening Dental Screen Date: 12/20/23 [facility] Medical History Essential (primary) hypertension Surgical History (Updated 06/30/24 @ 15:43 by Robert Mcmahon MD) Hx of colonoscopy (~09/17/23) History of circumcision H/O skin graft Family History Father No problems noted. Mother No problems noted. Daughter No problems noted. Daughter No problems noted. Social History Housing: House Alcohol intake: current Alcohol intake frequency: holidays/special occasions only Patient Tobacco Use Status: Never used Tobacco e-Cigarette/Vaping Use: Never Used Second Hand Smoke Exposure: No service: No Current occupational status: employed Cognitive needs: No Hearing needs: No Vision needs: Yes (Glasses) Questionnaire Thrive Questionnaire Date Thrive assessed: 12/20/23 AUDIT C Alcohol Use Questionnaire (AUDIT-C) 2. How many drinks containing alcohol do you have on a typical day when you are drinking?: 1 or 2 3. How often do you have six or more drinks on one occasion?: Monthly Total Score: 2 JOCELYN-7 AMB Questionnaire JOCELYN-7 Date JOCELYN - 7 assessed: 12/20/23 Source: Developed by Drs. Hector Booth, Ana Oconnor, Agus Narayanan and colleagues, with an educational quan from [employer]. Physical exam (Primary Care) Vital Signs: Last Vital Signs Pulse 90 06/30/24 14:56 BP 110/62 06/30/24 14:56 Pulse Ox 98 06/30/24 14:56 Oxygen Delivery Method Room Air 06/30/24 14:56 BMI result Body Mass Index 33.4 Tobacco/Smoking Status: Tobacco use Status Tobacco use date assessed 06/30/24 06/30/24 14:59 Patient Tobacco Use Status Never used Tobacco 06/30/24 14:59 e-Cigarette/Vaping Use Never Used 06/30/24 14:59 Thrive Assessment: Date of Thrive Assessment Date Thrive assessed 12/20/23 06/30/24 14:59 Coding Level of Care Code Est Pt Level 4 (45247) Complex EM visit Add On G2211 Diagnoses Essential (primary) hypertension I10 Assessment & Plan Assessment & Plan (1) Essential (primary) hypertension: Code(s): I10 - Essential (primary) hypertension Category: Medical Plan: Condition is stable. Continue meds at same dosage Scribe Plan - Not visible on output: History of Present Illness The patient is a 54-year-old male presenting with hypercholesterolemia, noted during a routine follow-up visit. Approximately six months ago, laboratory results indicated elevated cholesterol levels. The specific levels at that time are not provided, but it was mentioned as minimal elevation. The patient has not reported any symptoms directly related to elevated cholesterol. He is scheduled for repeat fasting laboratory tests to reassess lipid levels. Additionally, the patient has inquired about his bilirubin levels, noting stable levels previously recorded at 2.0. He reported no significant symptoms that he associates with the elevated bilirubin and indicated undergoing blood works around six months prior with no changes mentioned since. No treatment has been initiated yet for hyp ercholesterolemia, pending the results of the forthcoming labs that will determine if pharmacological intervention is necessary. 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 - Exercise: Engages in some exercise activities at home, including treadmill use. - Smoking: Denies smoking. - Alcohol Use: Denies alcohol use. - Substance Use: Denies drug use. - Nutrition: Mentions trying to reduce carbohydrate intake. - Sleep: Usually sleeps for five to six hours per night due to early rising. Review of Systems - General: Denies flu vaccination due to past adverse reactions. - Sleep: Reports sleeping five to six hours nightly, with early waking. Physical Exam - Respiratory- Clear chest auscultation. Results - Labs: Bilirubin previously noted to be 2.0, unchanged. Plan - Hypercholesterolemia: Order fasting lipid panel to reassess cholesterol levels. Depending on results, consider initiating cholesterol-lowering medication. - Elevated Bilirubin: Continue observation. If levels rise in future assessments, further evaluation may be warranted. Patient was informed and verbally consented to the use of an ambient scribe for clinic note documentation during this visit. Discussion Notes I discussed with the patient the current status of his cholesterol and the plan to reassess with fasting labs. I explained the potential need for medication if cholesterol levels remain elevated. I also addressed the stability of his bilirubin levels, noting that current levels do not warrant intervention but will continue to monitor for any changes. The patient understands the instructions for fasting before the laboratory tests and agreed to the follow-up plan. He was also informed to contact me if he observes any drastic changes in his condition. We reviewed his exercise and dietary habits as part of managing cholesterol, reinforcing lifestyle modifications. Future periodic check-ups were agreed upon for ongoing management of his lipid levels and overall health. Patient Instructions - Complete fasting after midnight prior to blood draw for lipid panel. - Schedule the laboratory test for the following morning. - Monitor for any significant changes in health and report if noticed. - Consider continuing and possibly enhancing exercise regimen and mindful dietary choices focusing on carbohydrate reduction. - Maintain follow-up visit in six months for continued management.
[2024-06-30 14:56] VITALS: BP 110/62; PULSE 90; O2SAT 98; BMI 33.4
== END 2024-06-30 15:44 | disposition home or self-care (01) ==
PROVIDERS: PCP Internal Medicine; Visit Provider Internal Medicine
DX: I10 Essential (primary) hypertension (principal)

== ENCOUNTER → 2024-06-30 14:53 | Outpatient (BNVA) | payer OTHER, SELFPAY | PROVIDERS: PCP Internal Medicine; Visit Provider Internal Medicine ==

== ENCOUNTER 2024-07-01 06:52 | Outpatient (REF) | payer OTHER, SELFPAY ==
[2024-07-01 07:41] LABS: Hematocrit 47.7 % (42.0-52.0); Hemoglobin 16.2 g/dl (14.0-18.0); Mean Corpuscular Hemoglobin 32.9 pg (27.0-33.0); Mean Corpuscular Volume 96.8 fL (80.0-98.0); Mean Platelet Volume 10.3 fL (9.4-12.4); Platelet Count 254 X10*3/uL (160-400); Red Blood Count 4.93 X10*6/uL (4.60-5.80); White Blood Count 9.1 X10*3/uL (4.8-10.8)
[2024-07-01 07:41] LABS: Appearance Urine Clear; Color Urine Dark Yellow; Glucose Urine UA Negative (Negative); Leukocyte Esterase Urine Negative (Negative); Nitrite Urine Negative (Negative); Specific Gravity - Urine >= 1.030 (1.005-1.025); Urine Blood Negative (Negative); Urine Ketones Trace mg/dL (Negative); Urine Protein Negative (Neg-Trace)
[2024-07-01 08:14] LABS: Alanine Aminotransferase 68 U/L (0-40); Anion Gap 13 (12-20); Aspartate Amino Transferase 46 U/L (5-37); Bilirubin Direct 0.3 mg/dL (0.0-0.5); Bilirubin Total 0.7 mg/dL (0.0-1.0); Blood Urea Nitrogen 10 mg/dL (9-16); Carbon Dioxide 24 mmol/L (22-29); Chloride 103 mmol/L (96-108); Cholesterol 160 mg/dL (<200); Estimated Glomerular Filt Rate > 60; Glucose Random 110 mg/dL (60-115); HDL Cholesterol 36 mg/dL (>40); LDL Cholesterol Calculated 96 mg/dL (<100); Potassium 3.6 mmol/L (3.3-5.1); Sodium 136 mmol/L (135-145); Total Protein 6.9 g/dL (6.5-8.0); Triglycerides 143 mg/dL (<150)
[2024-07-01 08:20] LABS: Alkaline Phosphatase 57 U/L (39-117)
[2024-07-01 08:28] LABS: Thyroid Stimulating Hormone 2.66 uIU/mL (0.32-4.0)
== END 2024-07-01 06:53 | disposition home or self-care (01) ==
LOC: HO.LAB 06:52
PROVIDERS: PCP Internal Medicine; Visit Provider Internal Medicine
DX: I10 Essential (primary) hypertension (principal)
CPT/HCPCS: 36415; 80048; 80061; 80076; 81003; 84443; 85027

== ENCOUNTER 2025-01-01 13:43 | Outpatient (AMB) | payer OTHER, SELFPAY ==
--- OUTSIDE RECORDS SUMMARY | 2025-01-01 13:50 | XMS_ITS | Patient Health Record ---
Author Organization [facility] Address [address] [place] [address] Care Team Providers Care Central Supply Tech Name Role Phone SalomeRobert Primary Care Provider Black, Kirsten Unavailable [phone] Allergies No Known Allergies Reason For Referral No Information Medications Medication SIG (Take, Route, Frequency, Duration) Notes Start Date End Date Status SUMAtriptan Succinate 50 MG Oral for 18 Days Active Lisinopril 10 MG TAKE 1 TABLET BY LAZ TH EVERY DAY Oral for 90 Days Active hydroCHLOROthiazide 25 MG Oral for 90 Days Active Ciclopirox 8 % APPLY DAILY TO SKIN TO AFFECTED AREA EVERY DAY FOR 30 DAYS for 30 Active Social History Tobacco Use: Social History Observation Description Date Details (start date - stop date) Never Smoker NA - NA Tobacco Use/Smoking Question Answer Notes Are you a: nonsmoker Additional Findings: Tobacco Non-User Current no n-smoker Alcohol Screen Question Answer Notes Did you have a drink contain ing alcohol in the past year? Yes How often did you have a dri nk containing alcohol in the past year? Monthly or less (1 point) Points 1 Interpretation Negative Tobacco use other than smoking: Question Answer Notes Are you an other tobacco user? No Problems Problem Type SNOMED Code ICD Code Onset Dates Problem Status W/U Status Risk Notes Problem Ulcer of toe of right foot (disorder) ([id number]) Skin ulcer of toe of right foot, limited to breakdown of skin (L97.511) Active confirmed Improvement Problem Skin ulcer of toe of left foot, limited to breakdown of skin (L97.521) Active confirmed Vital Signs Blood pressure diastolic 70 mm Hg 01/03/2024 Height [id number] in 01/03/2024 Blood pressure systolic 120 mm Hg 01/03/2024 Weight 220 lbs 01/03/2024 BMI 30.68 kg/m2 01/03/2024 Encounters Encounter Location Date Provider Diagnosis [facility] [address] [place] [address] 01/03/2024 Kirsten Black Tinea unguium B35.1 ; Pain in right toe(s) M79.674 and Pain in left toe(s) M79.675 Assessments Encounter Date Diagnosis (ICD Code) Assessment Notes Treatment Notes Treatment Clinical Notes Section Notes 01/03/2024 Tinea unguium (ICD-10 - B35.1) 01/03/2024 Pain in right toe(s) (ICD-10 - M79.674) 01/03/2024 Pain in left toe(s) (ICD-10 - M79.675) Plan Of Treatment Pending Test Test Name Order Date [id number] Plate 05/07/2023 32708- Debride <25 sq cm 05/21/2023 Insurance Providers Payer Name Payer Address Payer Phone Subscriber Number Group Number Insured Name Patient Relationship to Insured Coverage Start Date Coverage End Date [facility] [id number] [address] [address] [place] [address] [id number] Gustavo Powell Self - patient is the insured Medical (General) History Medical History History ICD Code Headaches/Migraines High blood pressure Surgical History Surgery Date(Month/Year) circumcision
--- NOTE | 2025-01-01 13:52 | A.OFFPC_ITS ---
Vital Signs 01/01/25 13:53 Height 5 ft 11 in Weight 235 lb BMI 32.8 BP 130/80 Blood Pressure Location Lt brachial Position Sitting Pulse 79 Pulse Source Pulse Oximeter Temp 97.5 F Temp Source Temporal Artery Scan Pulse Oximetry (%) 94 Oxygen Delivery Method Room Air Intake Visit Reasons: 6 mo follow Intake Note: Patient is here to follow up on HTN. 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 Foreman/Pile Driving And Erection: Not Required per policy Accompanied by: Self / Same As Patient Allergies No Known Allergies [No Known Allergies*] Allergy (Verified 01/01/25 13:53) Tobacco use date assessed: 01/01/25 Dental Screening Dental Screen Date: 01/01/25 Did you have a dental visit in the last 12 months?: Yes Did you have a dental problem in the last 6 months where you did not have access to dental care?: No Was dental information given to patient?: Patient has dentist [facility] Medical History Essential (primary) hypertension Surgical History Hx of colonoscopy (~09/17/23) History of circumcision H/O skin graft Family History Father No problems noted. Mother No problems noted. Daughter No problems noted. Daughter No problems noted. Social History Housing: House Alcohol intake: current Alcohol intake frequency: holidays/special occasions only Patient Tobacco Use Status: Never used Tobacco e-Cigarette/Vaping Use: Never Used Second Hand Smoke Exposure: No service: No Current occupational status: employed Cognitive needs: No Hearing needs: No Vision needs: Yes (Glasses) Questionnaire PHQ-9 Over the last 2 weeks, how often have you been bothered by any of the following problems? 1. Little interest or pleasure in doing things: not at all 2. Feeling down, depressed, or hopeless: not at all 3. Trouble falling or staying asleep, or sleeping too much: not at all 4. Feeling tired or having little energy: not at all 5. Poor appetite or overeating: not at all 6. Feeling bad about yourself - or that you are a failure or have let yourself or your family down: not at all 7. Trouble concentrating on things, such as reading the newspaper or watching television: not at all 8. Moving or speaking so slowly that other people could have noticed. Or the opposite - being so fidgety or restless that you have been moving around a lot more than usual: not at all 9. Thoughts that you would be better off or of hurting yourself in some way: not at all Total score: 0 Depression Screening Interpretation: Negative Depression Screening Done: Yes Source: Developed by Drs. Hector Booth, Ana Oconnor, Agus Narayanan and colleagues, with an educational quan from [employer]. Thrive Questionnaire Date Thrive assessed: 12/26/24 I am a: Patient What is your living situation today?: I have a steady place to live Within the past 12 months, did the food you bought not last and you didn't have the money to get more?: Never true Within the past 12 months, did you worry whether your food would run out before you got money to buy more?: Never true Do you have trouble paying for medicines?: No Do you have trouble getting transportation to medical appointments?: No Do you have trouble paying your heating and electricity bill?: No Do you have trouble taking care of your child, family member or friend?: No Do you have trouble with day-to-day activities such as bathing, preparing meals, shopping, managing finances, etc.?: No Are you currently unemployed and looking for a job?: Yes Are you interested in more education?: No Please select the resources that you would like help with: None Currently or been in a relationship where the following occur: No concerns reported THRIVE Score: 0 AUDIT C Alcohol Use Questionnaire (AUDIT-C) 1. How often do you have a drink containing alcohol?: 2-4 times a month 2. How many drinks containing alcohol do you have on a typical day when you are drinking?: 1 or 2 3. How often do you have six or more drinks on one occasion?: Never Total Score: 2 JOCELYN-7 AMB Questionnaire JOCELYN-7 Date JOCELYN - 7 assessed: 01/01/25 Feeling nervous, anxious, or on edge: 0 = Not at all Not being able to stop or control worryin = Not at all Worrying too much about different things: 0 = Not at all Trouble relaxin = Not at all Being so restless that it is hard to sit still: 0 = Not at all Becoming easily annoyed or irritable: 0 = Not at all Feeling afraid as if something awful might happen: 0 = Not at all Total JOCELYN-7 score (0-4 normal; 5-9 mild; 10-14 moderate; 15-21 severe): 0 Source: Developed by Drs. Hector Booth, Ana Oconnor, Agus Narayanan and colleagues, with an educational quan from [employer]. Physical exam (Primary Care) Vital Signs: Last Vital Signs Temp 97.5 F 01/01/25 13:53 Pulse 79 01/01/25 13:53 BP 130/80 01/01/25 13:53 Pulse Ox 94 01/01/25 13:53 Oxygen Delivery Method Room Air 01/01/25 13:53 BMI result Body Mass Index 32.8 Tobacco/Smoking Status: Tobacco use Status Tobacco use date assessed 01/01/25 01/01/25 14:17 Patient Tobacco Use Status Never used Tobacco 01/01/25 14:17 e-Cigarette/Vaping Use Never Used 01/01/25 14:17 PHQ-9: PHQ-9 Score PHQ-9: Total score 0 01/01/25 14:17 Depression Screening Interpretation: Negative Thrive Assessment: Date of Thrive Assessment Date Thrive assessed 12/26/24 01/01/25 14:17 Currently or been in a relationship where the following occur: No concerns reported Coding Level of Care Code Est Pt Level 4 (11492) Complex EM visit Add On G2211 Diagnoses Essential (primary) hypertension I10 Assessment & Plan Assessment & Plan (1) Essential (primary) hypertension: Code(s): I10 - Essential (primary) hypertension Category: Medical Plan: BP is in range. Continue current medications. BW ordered. Will call with results Plan History of Present Illness - The patient is a 54-year-old male presenting with xerosis and associated pruritus. - Reports dryness and itchiness on the chest area, specifically around the breasts, currently of concern. - Symptoms are not accompanied by pain. - Blood pressure is stable and patient is compliant with antihypertensive medications. Social History - The patient is currently employed. - No other social determinants of health discussed. Review of Systems - Dermatologic: Reports dryness and itchiness in chest area. - General: Denies headaches. Physical Exam General: Cooperative and healthy appearing Nutritional Appearance: Well nourished Orientation/consciousness: Patient oriented x3 Limitations: No limitations Head: Normal to inspection General: Appearance normal, both eyes and all related structures Neck: Normal visual inspection Chest: Normal palpation of entire chest wall Respiratory: N ormal respiratory effort Neurology: Patient oriented x3, no headaches Results Plan 1. Xerosis - Prescribed topical cream for skin dryness and itchiness. - Advised on regular application for symptom management. 2. Essential Hypertension - Confirmed medication compliance and stable blood pressure. - Ordered routine blood work for ongoing monitoring. Discussion Notes During the visit, we discussed the patient's skin condition, identifying it as xerosis with associated pruritus. I recommended a topical cream to relieve the dryness and itchiness, explaining the importance of consistent application for symptom management. We reviewed his current medication regimen for essential hypertension, confirming his compliance and stable blood pressure. I ordered routine blood work to assess his overall health status. The patient agreed to perform fasting for the blood work and planned to have it done on Sunday. We also discussed the absence of any new prescriptions needed beyond the topical cream. Patient Instructions - Apply the prescribed cream to the affected skin areas as directed. - Continue taking your current medications for blood pressure as prescribed. - Get the blood work done on Sunday, ensuring you fast before the test. - Return for follow-up if symptoms persist or worsen. Medications: New hydrocortisone 2.5% 1 appl topical BID PRN 20 grams 0RF skin irritation Discontinued hydrocortisone 2.5% (Proctosol HC) Discontinued Reason: Doctor's Order 1 appl ME BEDTIME PRN 30 grams 3RF hemorrhoids docusate sodium (Colace) Discontinued Reason: Doctor's Order 200 mg (2 x 100 mg) PO BEDTIME 60 caps 5RF
[2025-01-01 13:53] VITALS: BP 130/80; PULSE 79; TEMP 36.4; O2SAT 94; BMI 32.8
== END 2025-01-01 15:08 | disposition home or self-care (01) ==
LOC: HO.HMCH 13:44
PROVIDERS: PCP Internal Medicine; Visit Provider Internal Medicine
DX: I10 Essential (primary) hypertension (principal)

== ENCOUNTER → 2025-01-01 13:43 | Outpatient (BNVA) | payer OTHER, SELFPAY | PROVIDERS: PCP Internal Medicine; Visit Provider Internal Medicine ==

== ENCOUNTER 2025-01-10 07:23 | Outpatient (REF) | payer OTHER, SELFPAY ==
[2025-01-10 08:53] LABS: Hematocrit 49.3 % (42.0-52.0); Mean Corpuscular HGB Conc 34.5 g/dl (31.0-36.0); Mean Corpuscular Hemoglobin 33.5 pg (27.0-33.0); Mean Corpuscular Volume 97.2 fL (80.0-98.0); Mean Platelet Volume 11.1 fL (9.4-12.4); Platelet Count 285 X10*3/uL (160-400); Red Blood Count 5.07 X10*6/uL (4.60-5.80); Red Cell Distribution Width 13.2 % (11.0-16.0); White Blood Count 8.1 X10*3/uL (4.8-10.8)
[2025-01-10 09:08] LABS: Appearance Urine Clear; Color Urine Dark Yellow; Glucose Urine UA Negative (Negative); Leukocyte Esterase Urine Negative (Negative); Nitrite Urine Negative (Negative); PH 5.5 (5.0-9.0); Specific Gravity - Urine >= 1.030 (1.005-1.025); Urine Blood Negative (Negative); Urine Ketones Trace mg/dL (Negative); Urine Protein Negative (Neg-Trace)
[2025-01-10 09:11] LABS: Estimated Average Glucose 111 mg/dL; Hemoglobin A1c % 5.5 % (<6.0)
[2025-01-10 09:39] LABS: Alanine Aminotransferase 63 U/L (0-40); Albumin Level 4.3 g/dL (3.5-5.0); Alkaline Phosphatase 60 U/L (39-117); Anion Gap 11 (12-20); Aspartate Amino Transferase 51 U/L (5-37); Bilirubin Direct 0.5 mg/dL (0.0-0.5); Bilirubin Total 1.5 mg/dL (0.0-1.0); Blood Urea Nitrogen 14 mg/dL (9-16); Calcium 9.5 mg/dL (8.4-10.2); Carbon Dioxide 28 mmol/L (22-29); Chloride 103 mmol/L (96-108); Cholesterol 176 mg/dL (<200); Estimated Glomerular Filt Rate > 60; Glucose Random 96 mg/dL (60-115); HDL Cholesterol 51 mg/dL (>40); LDL Cholesterol Calculated 91 mg/dL (<100); Potassium 3.4 mmol/L (3.3-5.1); Sodium 139 mmol/L (135-145); Total Protein 7.2 g/dL (6.5-8.0); Triglycerides 174 mg/dL (<150)
[2025-01-10 09:46] LABS: Thyroid Stimulating Hormone 1.23 uIU/mL (0.32-4.0)
== END 2025-01-10 07:24 | disposition home or self-care (01) ==
LOC: HO.LAB 07:23
PROVIDERS: PCP Internal Medicine; Visit Provider Internal Medicine
DX: Z13.1 Encounter for screening for diabetes mellitus (principal); I10 Essential (primary) hypertension
CPT/HCPCS: 36415; 80048; 80061; 80076; 81003; 83036; 84443; 85027

== ENCOUNTER 2025-03-09 13:49 | Outpatient (AMB) | payer OTHER, SELFPAY ==
--- OUTSIDE RECORDS SUMMARY | 2025-03-09 14:02 | XMS_ITS | Patient Health Record ---
[facility] Address [address] [place] [address] Care Team Providers Care Transformation Specialist Name Role Phone Salome, Kartik Primary Care Provider BlackElodiae Unavailable [phone] Allergies No Known Allergies Reason For Referral No Information Medications Medication SIG (Take, Route, Frequency, Duration) Notes Start Date End Date Status SUMAtriptan Succinate 50 MG Oral; Duration: 18 Days Active Lisinopril 10 MG TAKE 1 TABLET BY LAZ TH EVERY DAY Oral; Duration: 90 Days Active hydroCHLOROthiazide 25 MG Oral; Duration: 90 Days Active Ciclopirox 8 % APPLY DAILY TO SKIN TO AFFECTED AREA EVERY DAY FOR 30 DAYS; Duration: 30 Active Social History Tobacco Use: Social [...] Ulcer of toe of right foot (disorder) ([id number] [id number]) Skin ulcer of toe of right foot, limited to breakdown of skin (L97.511) Active confirmed Improvement Problem Ulcer of toe of left foot (disorder) ([id number] [id number]) Skin ulcer of toe of left foot, limited to breakdown of skin (L97.521) Active confirmed Plan Of Treatment Pending Test Test Name Order Date [id number] Plate 05/07/2023 26374- Debride <25 sq cm 05/21/2023 Insurance Providers Payer Name Payer Address Payer Phone Subscriber Number Group Number Insured Name Patient Relationship to Insured Coverage Start Date Coverage End Date [facility] re-[id number] [address] [address] [place] [phone] [id number] Gustavo Powell Self - patient is the insured Medical (General) History Medical History History ICD Code Headaches/Migraines High blood pressure Surgical History Surgery Date(Month/Year) circumcision
[2025-03-09 14:03] VITALS: BP 125/72; PULSE 76; TEMP 36.9; O2SAT 95; BMI 32.9
--- NOTE | 2025-03-09 14:03 | AM.OFFWIN_ITS ---
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 - Reports light pain in the top of the f oot starting three to four days ago. - Pain worsened with ankle swelling and tenderness. - No fever, injury, or twisting reported . - Epsom salt soak provided no relief. - Denies history of gout, arthritis, or kidney issues. - Discomfort increases with prolonged st anding. - No prior foot fractures or significant injuries. Physical Exam General: Cooperative, healthy appearing, comfortable, no acute distress and well developed Orientation: Patient oriented x3 Limitations: No limitations Head: Normal to inspection Ears: Hearing grossly normal bilaterally Nose: Normal External nose present Face and sinus: Normal facial exam Mouth: normal, moist oral mucosa Eyes: Appearance normal, both eyes and all related structures Neck: Normal visual inspection and Yes full ROM Respiratory: Normal respiratory effort and able to speak in complete sentences. Skin: no rashes or lesions noted Neuro: Patient oriented x3 Extremities: LEFT FOOT: TTP and slight edema distal 4/5 metatarsals. toes with full ROM and NVI, ankle with full ROM and NVI, slight edema on dorsal aspect of left foot. Moving all extremities normally otherwise. [facility] Medical History (Updated 03/09/25 @ 15:00 by Chyna Brantley PA-C) Essential (primary) hypertension Surgical History Hx of colonoscopy (~09/17/23) History of circumcision H/O skin graft Family History Father No problems noted. Mother No problems noted. Daughter No problems noted. Daughter No problems noted. Social History Housing: House Alcohol intake: current Alcohol intake frequency: holidays/special occasions only Patient Tobacco Use Status: Never used Tobacco e-Cigarette/Vaping Use: Never Used Second Hand Smoke Exposure: No service: No Current occupational status: employed Cognitive needs: No Hearing needs: No Vision needs: Yes (Glasses) Review of Systems Const All systems reviewed & are unremarkable except as noted in HPI and below Physical Exam Vital Signs: Last Vital Signs Temp 98.4 F 03/09/25 14:03 Pulse 76 03/09/25 14:03 BP 125/72 03/09/25 14:03 Pulse Ox 95 03/09/25 14:03 Oxygen Delivery Method Room Air 03/09/25 14:03 BMI result Body Mass Index 32.9 Assessment & Plan Assessment & Plan (1) Foot pain, left: Code(s): M79.672 - Pain in left foot Plan: Plan Patient was informed and verbally consented to the use of an ambient scribe for clinic note documentation during this visit 1. Foot Pain - Obtain x-ray of left foot. - Proceed to radiology for imaging. (2) Sprain of foot, left: Code(s): S93.602A - Unspecified sprain of left foot, initial encounter Qualifiers: Encounter type: initial encounter Qualified Code(s): S93.602A - Unspecified sprain of left foot, initial encounter Plan: My interpretation of the left foot x-ray shows no acute fracture or dislocation, likely a sprain, we will fit him for a walking boot which he should use over the next 1-2 weeks and then wean himself off of it with doing [id number] exercises twice daily. He can also take the leave that I am sending to the pharmacy twice a day for the next 3 days and then take it as needed, rest it and use ice. Follow-up here or with his PCP if no improvement in his symptoms. Orders: Orders XR foot LT min 3V Today M79.672 - Pain in left foot Medications: New naproxen 500 mg PO Q12H PRN 20 tabs 0RF pain Coding Level of Care Code Est Pt Level 4 (81590) Diagnoses Foot pain, left M79.672 Sprain of left foot, initial encounter S93.606T Encounter type: initial encounter
== END 2025-03-09 15:13 | disposition home or self-care (01) ==
PROVIDERS: PCP Internal Medicine; Visit Provider Physician Assistant
DX: M79.672 Pain in left foot (principal); S93.602A Unspecified sprain of left foot, initial encounter

== ENCOUNTER 2025-03-09 13:49 | Outpatient (REF) | payer OTHER, SELFPAY ==
--- NOTE | ~2025-03-09 | XR_ITS ---
EXAMINATION: XR FOOT, LEFT CLINICAL INFORMATION: M79.672 - Pain in left foot COMPARISON: None available. TECHNIQUE: AP, lateral, and oblique views of the left foot. FINDINGS: No fracture, dislocation, or suspicious bone lesion. There is normal alignment. Joint spaces are normal. Normal plantar arch. There is a tiny dorsal calcaneal spur. There are normal soft tissues. XR/XR foot LT min 3V IMPRESSION: Essentially normal left foot. Electronically signed by: Lino Kilpatrick MD 03/09/2025 02:46 PM EDT
== END 2025-03-09 13:50 | disposition home or self-care (01) ==
LOC: HO.HMGCX 13:49
PROVIDERS: PCP Internal Medicine; Visit Provider Physician Assistant
DX: S93.602A Unspecified sprain of left foot, initial encounter (principal); M79.672 Pain in left foot; X58.XXXA Exposure to other specified factors, initial encounter
CPT/HCPCS: 73630

== ENCOUNTER → 2025-03-09 14:32 | Outpatient (BNV) | payer OTHER, SELFPAY | PROVIDERS: PCP Internal Medicine; Visit Provider Radiology Diagnostic Radiology | DX: M79.672 Pain in left foot (principal) | CPT/HCPCS: 73630 ==

== ENCOUNTER 2025-03-10 07:11 | Outpatient (REF) | payer OTHER, SELFPAY ==
--- NOTE | ~2025-03-10 | US_ITS ---
EXAMINATION: US ABDOMEN HISTORY: R74.8 - Abnormal levels of other serum enzymes TECHNIQUE: Real-time grayscale ultrasound imaging of the abdomen was performed and images were reviewed. COMPARISON: There are no prior studies available for comparison. FINDINGS: Liver: The right lobe of the liver measures 20.2 cm in size. The left lobe of the liver measures 15.3 cm in size. The liver demonstrates increased echotexture, consistent with steatosis. No focal mass or intrahepatic biliary ductal dilatation is identified. There is normal hepatopedal flow in the portal vein. Gallbladder and biliary tree: There is a 9 x 3 x 5 mm polyp versus nonmobile calculus in the gallbladder. There is no wall thickening or pericholecystic fluid. There is no sonographic Seay sign. The common bile duct is normal in caliber measuring 4 mm. Kidneys: The right kidney measures 10.6 cm in length. The left kidney measures 12.5 cm in length. The kidneys are unremarkable, without evidence of masses, hydronephrosis, or calculi. Pancreas: The pancreatic head, neck, and body are unremarkable. The pancreatic tail is obscured by bowel gas. Spleen: The spleen is normal in size and contour, measuring 10.1 cm in length. Abdominal aorta and inferior vena cava: The visualized portions of the abdominal aorta and inferior vena cava are normal in caliber. There is no free fluid in the abdomen. US/US abdomen complete IMPRESSION: 1. Hepatomegaly and hepatic steatosis. 2. 9 x 3 x 5 mm polyp versus nonmobile calculus in the gallbladder. Electronically signed by: Hector Espinoza MD 03/10/2025 08:49 AM EDT
== END 2025-03-10 07:12 | disposition home or self-care (01) ==
LOC: HO.US 07:11
PROVIDERS: PCP Internal Medicine; Visit Provider Internal Medicine
DX: R74.8 Abnormal levels of other serum enzymes (principal)
CPT/HCPCS: 76700

== ENCOUNTER → 2025-03-10 07:13 | Outpatient (BNV) | payer OTHER, SELFPAY | PROVIDERS: PCP Internal Medicine; Visit Provider Radiology Diagnostic Radiology | DX: K76.0 Fatty (change of) liver, not elsewhere classified (principal); R16.0 Hepatomegaly, not elsewhere classified | CPT/HCPCS: 76700 ==

== ENCOUNTER 2025-03-13 04:11 | Emergency (ER) | payer OTHER, SELFPAY ==
[2025-03-13 04:19] VITALS: BP 133/85; PULSE 64; RESP 16; TEMP 36.9; O2SAT 96; BMI 32.8
[2025-03-13 04:49] LABS: MANUAL DIFF FLAG NO
[2025-03-13 04:50] LABS: Hematocrit 46.8 % (42.0-52.0); Hemoglobin 16.8 g/dl (14.0-18.0); Imm Gran Abs Auto 0.04 X10*3/uL (0.00-0.03); Imm Gran Pct Auto 0.3 % (0.0-0.4); Lymphocytes Absolute Auto 2.7 X10*3/uL (1.2-4.9); Mean Corpuscular HGB Conc 35.9 g/dl (31.0-36.0); Mean Corpuscular Hemoglobin 33.5 pg (27.0-33.0); Mean Corpuscular Volume 93.4 fL (80.0-98.0); NRBC Abs Auto 0.000 X10*3/uL (0.0-0.012); NRBC Pct Auto 0.0 /100WBC (0.0-0.2); Platelet Count 285 X10*3/uL (160-400); Red Blood Count 5.01 X10*6/uL (4.60-5.80); White Blood Count 12.0 X10*3/uL (4.8-10.8)
--- NOTE | 2025-03-13 05:01 | ED.EXTPRO ---
HPI - Extremity Problem General Chief complaint: Extremity Injury, Lower Stated complaint: left foot swelling with pain Time Seen by Provider: 03/13/25 04:58 Source: patient and old records reviewed Mode of arrival: ambulatory Limitations: no limitations History of Present Illness ED Provider: EMMA FRIED Narrative: 54 yo male with PMH of HTN here with c/o L ankle swelling and redness with warmth x 2 weeks. Just had xray that was negative at walk in clinic on 03/10. He notes no known injury, no trauma, no bites. He has been taking pain medications PRN but nothing else. He denies IVDA. He can move ankle joint around without issue. He has no fevers, chills, nausea/vomiting. MD Complaint: other (skin rash/swelling) Onset (ago): week(s) (2) Pain Consistency: constant Location: left and other Quality: aching Radiation: none Relieving factors: immobilization Exacerbating factors: palpation Associated symptoms: rash Related Data Previous Rx's ?Medication ?Instructions ?Recorded sumatriptan succinate 50 mg tablet 50 mg PO Q2-4H PRN for migraine 09/03/24 #27 tabs lisinopril 10 mg tablet 10 mg PO DAILY #90 tabs 10/17/24 hydrocortisone 2.5 % topical cream 1 appl topical BID PRN skin 01/01/25 irritation #20 grams hydrochlorothiazide 25 mg tablet 25 mg PO DAILY #90 tabs 01/26/25 naproxen 500 mg tablet 500 mg PO Q12H PRN pain #20 tabs 03/09/25 cephalexin 500 mg capsule 500 mg PO QID 7 days #28 caps 03/13/25 doxycycline hyclate 100 mg capsule 100 mg PO BID 7 days #14 caps 03/13/25 Allergies Allergy/AdvReac Type Severity Reaction Status Date / Time No Known Allergies (No Known Allergy Verified 03/13/25 04:22 Allergies*) Review of Systems Review of Systems: Constitutional : No Fever, No Chills ENT/Mouth : No sore throat, No Rhinorrhea Eyes: No Eye Pain, No Swelling, No Redness Cardiovascular : No Chest Pain, No SOB Respiratory : No Cough, No Sputum Gastrointestinal : No Nausea, No Vomiting, No Diarrhea, No abdominal Pain Genitourinary : No Dysuria, No Hematuria Musculoskeletal : No joint pain, No Myalgias, No Joint Swelling Skin : No Skin Lesions, positive skin rash Neuro : No Weakness, No Numbness, No Headache Psych : No Anxiety, No Depression Heme/Lymph: No Bruising, No Bleeding,No Lymphadenopathy Endocrine : No Polyuria, No Polydipsia All other systems reviewed and are negative [facility] Past Medical History Attestation statement: The following information was validated with the patient. Source: old records reviewed Medical History Essential (primary) hypertension Surgical History Hx of colonoscopy (~09/17/23) History of circumcision H/O skin graft Family History Family History Father No problems noted. Mother No problems noted. Daughter No problems noted. Daughter No problems noted. Social History Social History Housing: House Alcohol intake: current Alcohol intake frequency: holidays/special occasions only Patient Tobacco Use Status: Never used Tobacco e-Cigarette/Vaping Use: Never Used Second Hand Smoke Exposure: No Advance Directives: No Do you have a plan to hurt others: No Plan service: No Current occupational status: employed Cognitive needs: No Hearing needs: No Vision needs: Yes (Glasses) Physical Exam Vital Signs: Vital Signs: Last Vital Signs Temp 98.4 F 03/13/25 04:19 Pulse 64 03/13/25 04:19 Resp 16 03/13/25 04:19 BP 133/85 03/13/25 04:19 Pulse Ox 96 03/13/25 04:19 O2 Del Method Room Air 03/13/25 04:19 BMI result Body Mass Index 32.8 Appearance: Alert. Oriented X3. No acute distress. Eyes: Pupils equal, round and reactive to light. ENT: Pharynx normal. Neck: Normal inspection. Neck supple. CVS: Normal heart rate and rhythm. Pulses normal. Respiratory: No respiratory distress. Breath sounds normal. Abdomen: Soft and nontender. Skin: Skin warm and dry. Normal skin color. L ankle on anterior portion there is 6cm patch of redness and warmth. He has no pain with passive or active motions of the ankle joint. He has mild swelling anterior on ankle but nothing posterior. He has no severe pain on compression and he is NV intact, no crepitus felt. Extremities: No lower extremity edema. Neuro: Oriented X 3. No motor deficit. No sensory deficit. CN2-12 intact Medical Decision Making Medical Decision Making [facility] Narrative: 54 yo male with PMH of HTN here with c/o L ankle dorsum redness and swelling without no precipiting event. At this time can range the ankle only has swelling anteriorly. He has no signs of septic joint. He will be placed on oral cephalexin and doxy. There is no calf swelling to suggest DVT. He has no signs of abscess. Given precautions to return Differential Diagnosis Differential Diagnoses: The differential diagnosis associated with the presentation includes cellulitis, abscess, gout Admission/Observation Consideration of admission/observation: Escalation of care including admission/observation considered no systemic symptoms will trial oral abx Lab Data [facility] Lab Attestation statement: I reviewed the patient's lab results. 03/13/25 04:43 03/13/25 04:43 Labs: Lab Results 03/13/25 Range/Units 04:43 WBC 12.0 H (4.8-10.8) X10*3/uL RBC 5.01 (4.60-5.80) X10*6/uL Hgb 16.8 (14.0-18.0) g/dl Hct 46.8 (42.0-52.0) % MCV 93.4 (80.0-98.0) fL MCH 33.5 H (27.0-33.0) pg MCHC 35.9 (31.0-36.0) g/dl RDW 12.9 (11.0-16.0) % Plt Count 285 (160-400) X10*3/uL MPV 10.0 (9.4-12.4) fL Immature Gran % (Auto) 0.3 (0.0-0.4) % Neut % (Auto) 65.4 (45-73) % Lymph % (Auto) 22.5 (20-40) % [place] % (Auto) 10.4 (2-11) % Eos % (Auto) 1.1 (0-4) % Baso % (Auto) 0.3 (0-2) % Lymph # (Auto) 2.7 (1.2-4.9) X10*3/uL [place] # (Auto) 1.3 H (0.1-1.2) X10*3/uL Eos # (Auto) 0.1 (0.0-0.4) X10*3/uL Baso # (Auto) 0.0 (0.0-0.2) X10*3/uL Abs Immat Gran (auto) 0.04 H (0.00-0.03) X10*3/uL Absolute Neuts (auto) 7.9 (2.0-8.3) x10*3/uL Absolute Nucleated RBC 0.000 (0.0-0.012) X10*3/uL Nucleated RBC % (auto) 0.0 (0.0-0.2) /100WBC Sodium 140 (135-145) mmol/L Potassium 4.0 (3.3-5.1) mmol/L Chloride 106 (96-108) mmol/L Carbon Dioxide 25 (22-29) mmol/L Anion Gap 13 (12-20) BUN 14 (9-16) mg/dL Creatinine 0.87 (0.5-1.4) mg/dL Estim Creat Clear Calc 123.3 Estimated GFR > 60 Random Glucose 108 (60-115) mg/dL Calcium 9.6 (8.4-10.2) mg/dL Total Bilirubin 0.5 (0.0-1.0) mg/dL AST 32 (5-37) U/L ALT 33 (0-40) U/L Alkaline Phosphatase 59 (39-117) U/L Total Protein 7.3 (6.5-8.0) g/dL Albumin 4.4 (3.5-5.0) g/dL External Record Review External record reviewed: Outpatient record Prescription Management I considered prescription management with: Antibiotic Discharge Plan Discharge Clinical Impression: Cellulitis Qualifiers: Site of cellulitis: extremity Site of cellulitis of extremity: lower extremity Laterality: left Qualified Code(s): L03.116 - Cellulitis of left lower limb Patient Disposition: Home, Self-Care Instructions: Cellulitis (ED) Additional Instructions: take your medications with foot please return for worsening redness, swelling, fevers, red streaks up the foot, unable to move your ankle joint or any other concerns rest and keep elevated On a cephalosporin?antibiotic, softer bowel movements are to be expected. Call your provider if you move your bowels more than 4 times a day, your bowel movements are almost all liquid, or you get a rash.?? On doxycycline, do not take pills immediately before going to bed and swallow pills with plenty of water. Avoid direct sunlight, iron, antacids, and Pepto Bismol. Call your provider if you develop new ringing in your ears, new problems hearing, dizziness, difficulty swallowing, rash, abdominal discomfort, nausea, or diarrhea.? Prescriptions: New doxycycline hyclate 100 mg capsule 100 mg PO BID 7 Days Qty: 14 0RF cephalexin 500 mg capsule 500 mg PO QID 7 Days Qty: 28 0RF No Action sumatriptan succinate 50 mg tablet 50 mg PO Q2-4H PRN (Reason: for migraine) Qty: 27 3RF lisinopril 10 mg tablet 10 mg PO DAILY Qty: 90 1RF hydrochlorothiazide 25 mg tablet 25 mg PO DAILY Qty: 90 0RF hydrocortisone 2.5 % cream 1 appl topical BID PRN (Reason: skin irritation) Qty: 20 0RF naproxen 500 mg tablet 500 mg PO Q12H PRN (Reason: pain) Qty: 20 0RF Print Language: Divehi
[2025-03-13 05:07] LABS: Alanine Aminotransferase 33 U/L (0-40); Albumin Level 4.4 g/dL (3.5-5.0); Alkaline Phosphatase 59 U/L (39-117); Anion Gap 13 (12-20); Aspartate Amino Transferase 32 U/L (5-37); Blood Urea Nitrogen 14 mg/dL (9-16); Calcium 9.6 mg/dL (8.4-10.2); Carbon Dioxide 25 mmol/L (22-29); Chloride 106 mmol/L (96-108); Creatinine Clr Calc Pharmacy 123.3; Estimated Glomerular Filt Rate > 60; Potassium 4.0 mmol/L (3.3-5.1); Sodium 140 mmol/L (135-145); Total Protein 7.3 g/dL (6.5-8.0)
[2025-03-13 05:25] VITALS: BP 133/85; PULSE 64; RESP 16; TEMP 36.9; O2SAT 96
== END 2025-03-13 05:25 | disposition home or self-care (01) ==
PROVIDERS: Emergency Medicine; Emergency Provider Emergency Medicine; PCP Internal Medicine
DX: L03.116 Cellulitis of left lower limb (principal); M25.472 Effusion, left ankle; I10 Essential (primary) hypertension
CPT/HCPCS: 36415; 80053; 85025; 99283

== ENCOUNTER 2025-07-23 13:15 | Outpatient (AMB) | payer OTHER, SELFPAY ==
--- NOTE | 2025-07-23 13:27 | A.OFFPC_ITS ---
Vital Signs 07/23/25 13:32 Height 5 ft 11 in Weight 242 lb 4 oz BMI 33.8 BP 150/70 H Blood Pressure Location Lt brachial Position Sitting Pulse 85 Pulse Source Pulse Oximeter Temp 97.1 F Temp Source Temporal Artery Scan Pulse Oximetry (%) 95 Oxygen Delivery Method Room Air Intake Visit Reasons: 6 month f/u Recovery Coach Required: No Summer Camp Counselor: Not Required per policy Accompanied by: Self / Same As Patient Allergies No Known Allergies (No Known Allergies*) Allergy (Verified 07/23/25 14:45) Medication List - Last Reconciled 07/23/25 by Robert Mcmahon MD hydrochlorothiazide 25 mg PO DAILY hydrocortisone 2.5% 1 appl topical BID PRN lisinopril 20 mg PO DAILY sumatriptan succinate 50 mg PO Q2-4H PRN Tobacco use date assessed: 07/23/25 Dental Screening Dental Screen Date: 01/01/25 HPI HPI Comments History of Present Illness Details History of Present Illness - The patient is a 55 year old male pres enting with concerns about uncontrolled hypertension. - Hypertension: The patient reports his blood pressure medications are not working effectively, with home readings around 145-146 mmHg. - He is currently taking hydrochlorothia zide once daily and lisinopril 10 mg. - Cellulitis: He had cellulitis on his l eg approximately five months ago and has a residual dark spot at the site. - Migraines: He has a history of migrain es and was prescribed naproxen, but has not taken it for at least 6 to 9 months due to an absence of headaches. - Liver Enzymes: Liver function tests we re noted to be elevated in January but returned to normal on repeat blood work in March. - Preventative Care: He has undergone a colonoscopy in the past. - He declines the influenza vaccine as h e states it makes him feel very sick. 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 - Substance Use: He reports occasional a lcohol consumption, such as during holidays, but denies regular use. Results - Labs: Recent blood work from March wa s normal. - Liver function tests were elevated in January but normalized on repeat labs in A ugust. - Tests and Diagnostics: The patient rep orts a history of a prior colonoscopy, with the date unspecified. [facility] Medical History Essential (primary) hypertension Surgical History Hx of colonoscopy (~09/17/23) History of circumcision H/O skin graft Family History Father No problems noted. Mother No problems noted. Daughter No problems noted. Daughter No problems noted. Social History Housing: House Alcohol intake: current Alcohol intake frequency: holidays/special occasions only Patient Tobacco Use Status: Never used Tobacco e-Cigarette/Vaping Use: Never Used Second Hand Smoke Exposure: No service: No Current occupational status: employed Cognitive needs: No Hearing needs: No Vision needs: Yes (Glasses) Questionnaire Thrive Questionnaire Date Thrive assessed: 12/26/24 I am a: Patient What is your living situation today?: I have a steady place to live Within the past 12 months, did the food you bought not last and you didn't have the money to get more?: Never true Within the past 12 months, did you worry whether your food would run out before you got money to buy more?: Never true Do you have trouble paying for medicines?: No Do you have trouble getting transportation to medical appointments?: No Do you have trouble paying your heating and electricity bill?: No Do you have trouble taking care of your child, family member or friend?: No Do you have trouble with day-to-day activities such as bathing, preparing meals, shopping, managing finances, etc.?: No Are you currently unemployed and looking for a job?: Yes Are you interested in more education?: No Please select the resources that you would like help with: None Currently or been in a relationship where the following occur: No concerns reported THRIVE Score: 0 JOCELYN-7 AMB Questionnaire JOCELYN-7 Date JOCELYN - 7 assessed: 01/01/25 Source: Developed by Drs. Hector Booth, Ana Oconnor, Agus Narayanan and colleagues, with an educational quan from [email or web address]. Review of Systems Narrative Review of Systems - Cardiovascular: Reports elevated blood pressure readings at home. - Integumentary: Reports a residual dark spot on his left leg from a past episode of cellulitis five months ago. - Neurological: Denies recent headaches or migraines for the last 6-9 months. - General: Denies pain on examination. - Allergic/Immunologic: Reports feeling real sick after receiving influenza vaccinations in the past. Physical exam (Primary Care) Vital Signs: Last Vital Signs Temp 97.1 F 07/23/25 13:32 Pulse 85 07/23/25 13:32 BP 150/70 H 07/23/25 13:32 Pulse Ox 95 07/23/25 13:32 Oxygen Delivery Method Room Air 07/23/25 13:32 BMI result Body Mass Index 33.8 Tobacco/Smoking Status: Tobacco use Status Tobacco use date assessed 07/23/25 07/23/25 13:37 Patient Tobacco Use Status Never used Tobacco 07/23/25 13:29 e-Cigarette/Vaping Use Never Used 07/23/25 13:29 Thrive Assessment: Date of Thrive Assessment Date Thrive assessed 12/26/24 07/23/25 13:29 Currently or been in a relationship where the following occur: No concerns reported Narrative Physical Exam General: Cooperative and healthy appearing Nutritional Appearance: Well nourished Orientation/consciousness: Patient oriented x3 Limitations: No limitations Head: Normal to inspection General: Appearance normal, both eyes and all related structures Neck: Normal visual inspection Chest: Normal palpation of entire chest wall Respiratory: Normal respiratory effort Neurology: Patient oriented x3 Coding Level of Care Code Est Pt Level 4 (11166) Add On Problem Visit Only Diagnoses Essential (primary) hypertension I10 Assessment & Plan Assessment & Plan (1) Essential (primary) hypertension: Code(s): I10 - Essential (primary) hypertension Category: Medical Plan Plan - Hypertension: The dose of lisinopril will be increased from 10 mg to 20 mg once daily to improve blood pressure control. - The patient was instructed to take two of his current 10 mg lisinopril tablets daily with his hydrochlorothiazide until the current supply is finished. - Once he receives the new prescription, he will take one 20 mg lisinopril tablet daily. - He is advised to continue monitoring his blood pressure at home daily. - Skin: The dark spot on his left leg is benign and requires no treatment. - Patient Counseling: The patient was reassured that his liver function is normal. - He was also advised that it is safe to consume detox tea with his blood pressure medications. - Follow-up: The patient will return for a follow-up visit in one month to re- evaluate his blood pressure. Discussion Notes I addressed the patient's concern regarding his elevated blood pressure, which was 150/70 mmHg in the office. I explained that I will increase his lisinopril dose to 20 mg once daily. I provided specific instructions for him to finish his current 10 mg tablets by taking two at a time before starting the new prescription. I advised him to monitor his blood pressure daily and schedule a follow-up appointment in one month for reassessment. We reviewed his recent lab results, and I reassured him that his liver enzymes, which were previously high, have returned to normal. I also examined a dark spot on his leg and informed him it was a benign finding from a prior episode of cellulitis, requiring no further action. I confirmed it is safe for him to drink detox tea with his medications. The patient's questions were answered during the visit. Patient Instructions - I am increasing your lisinopril dose from 10 mg to 20 mg once a day to help lower your blood pressure. - Until you finish your current prescription, take two of your 10 mg lisinopril pills each day along with your water pill (hydrochlorothiazide). - Once you get the new prescription for 20 mg pills, take only one pill each day. - Please check your blood pressure at home every day. - The dark spot on your leg is not a concern and does not need any treatment. - It is okay to drink detox tea while taking your blood pressure medication. - Your recent blood tests, including your liver tests, were normal. - Please make an appointment to see me again in one month to check on your blood pressure. Medications: Changed From lisinopril 10 mg PO DAILY 90 tabs 1RF To lisinopril 20 mg PO DAILY 90 tabs 1RF Discontinued naproxen Discontinued Reason: Doctor's Order 500 mg PO Q12H PRN 20 tabs 0RF pain
[2025-07-23 13:32] VITALS: BP 150/70; PULSE 85; TEMP 36.2; O2SAT 95; BMI 33.8
--- OUTSIDE RECORDS SUMMARY | 2025-07-23 17:19 | XMS_ITS | Patient Health Record ---
Author Organization [facility] Address [address] [place] [address] Care Team Providers Care Document Restorer Name Role Phone Salome, Kartik Primary Care Provider BlackElodiae Unavailable [phone] Allergies No Known Allergies Reason For Referral [...] Ulcer of toe of right foot (disorder) ([id number]) Skin ulcer of toe of right foot, limited to breakdown of skin (L97.511) Active confirmed Improvement Problem Ulcer of toe of left foot (disorder) ([id number]) Skin ulcer of toe of left foot, limited to breakdown of skin (L97.521) Active confirmed Plan Of Treatment Pending Test Test Name Order Date [id number] Plate 05/07/2023 45070- Debride <25 sq cm 05/21/2023 Insurance Providers Payer Name Payer Address Payer Phone Subscriber Number Group Number Insured Name Patient Relationship to Insured Coverage Start Date Coverage End Date [facility] [id number] [address] [address] [place] [phone] [id number] Gustavo Powell Self - patient is the insured Medical (General) History Medical History History ICD Code Headaches/Migraines High blood pressure Surgical History Surgery Date(Month/Year) circumcision
== END 2025-07-23 14:09 | disposition home or self-care (01) ==
LOC: HO.HMCH 13:15
PROVIDERS: PCP Internal Medicine; Visit Provider Internal Medicine
DX: I10 Essential (primary) hypertension (principal)